=== PATIENT | female | born 1955 | race African-American/Black ===

== ENCOUNTER 2016-05-27 13:40 | Inpatient (IN) | payer SELFPAY ==
[~2016-05-27] VITALS: Ht 162.6 cm; Wt 85.2 kg
[~2016-05-27 13:40] MED LIST: BUMEX2 MG PO; FERROUS SULFAT325 MG PO; GLIMEPIRIDE4 MG PO; MULTIPLE VITAMI1 TA1 PO; NORVASC10 MG PO; NOVOLIN 70/30 110 ML SC; PROBIOTIC1 EAC1 PO; ROCALTROL0.25 MCG PO; SUPER B COMPLE150 MG PO; TOPROL XL100 MG PO; ZINC50 MG PO
[2016-05-27 14:10] LABS: BASOPHILS 0.2 % (0.0-2.0); EOSINOPHILS 2.3 % (0-7); HEMOGLOBIN 8.3 g/dL (12-16); IMMATURE GRANULOCYTES 0.2 % (0-5); LYMPHOCYTES 16.8 % (15-50); MCH 27.9 pg (26.0-34.0); MCHC 31.9 g/dL (31.0-37.0); MCV 87.5 fL (80.0-100.0); MEAN PLATELET VOLUME 10.6 fL (7.4-10.4); MONOCYTES 8.5 % (2-11); PLATELET COUNT 219 10x3/uL (130-400); RBC 2.97 10x6/uL (4.00-5.40); RDW 13.1 % (11.5-14.5); WBC 8.1 10x3/uL (4.8-10.8)
[2016-05-27 14:26] LABS: CALCIUM 8.9 mg/dL (8.5-10.1); CREATININE - SERUM 7.5 mg/dL (0.6-1.3)
--- NOTE | 2016-05-27 14:30 | NUR ---
RECEIVED PT VIA WHEELCHAIR ACCOMPANIED BY FAMILY MEMBERS. ON ROOM AIR. NO IV ACCESS. WILL ADMIT PT AND CONTINUE TO MONITOR.
[2016-05-27] MEDS ORDERED: GLIMEPIRIDE4 MG PO (14:36)
[2016-05-27] MEDS ORDERED: SODIUM BICARBO325 MG PO (14:39)
[2016-05-27] MEDS ORDERED: DIOVAN80 MG PO (14:40)
[2016-05-27] MEDS ORDERED: GABAPENTIN100 MG PO (14:42)
[2016-05-27 14:59] VITALS: BP 160/61; BMI 30.9
--- NOTE | 2016-05-27 15:33 | NUR ---
STACY REIS SITED PT WITH 22G IV CATHETER TO RIGHT AC. TOLERATED WELL. WILL CONTINUE TO MONITOR.
[2016-05-27 16:00] VITALS: BP 160/61
--- NOTE | 2016-05-27 16:30 | NUR ---
1535- QUICKSTART WITH MEDICATIONS DONE, ADMISSION ASSESSMENT DONE, AND ADMISSION HISTORY DONE. WILL AWAIT NEW ORDERS AND CONTINUE TO MONITOR.
--- NOTE | 2016-05-27 16:39 | NUR ---
PAGED JILLIAN PAIZ TO INFORM HER OF PT AND PTS FAMILY REQUESTING FOR PT TO HAVE SOMETHING FOR SHOULDER PAIN. AWAITING CALLBACK.
--- NOTE | 2016-05-27 17:27 | NUR ---
DR. SPEARS ON UNIT. INFORMED HIM OF PTS REQUEST FOR SOMETHING FOR SHOULDER PAIN. ALSO INFORMED DR. SPEARS ABOUT PTS POTASSIUM LEVEL (6.0). NEW ORDERS RECEIVED. WILL CONTINUE TO MONITOR.
--- NOTE | 2016-05-27 17:28 | NUR ---
PT SITTING UP IN BED WITH EYES OPEN EATING DINNER. FAMILY MEMBERS AT BEDSIDE. LEFT ARM ELEVATED ON PILLOW DUE TO SWELLING (PT STATES IT IS FROM A PINCHED NERVE). NO NEED AT CURRENT TIME. WILL CONTINUE TO MONITOR AND CONTINUE WITH PLAN OF CARE.
--- NOTE | 2016-05-27 18:35 | NUR ---
SCDS PLACED ON PT ORDERED.
[2016-05-27 20:00] VITALS: BP 162/64
[2016-05-28] VITALS (18 sets, daily range): BP systolic 102–184; BP diastolic 41–97; Ht 162.6 cm; Wt 85.2 kg
--- NOTE | 2016-05-28 06:30 | NUR ---
DR VIZCARRA CALLS, NEW ORDERS RECEIVED TO MAINTAIN PT'S NPO STATUS, PLACE ORDER TO OBTAIN CONSENT FOR AV FISTULA/GRAFT AND HEMOSPLIT PLACEMENT TO START DIALYSIS. INFORMED DR VIZCARRA THAT PT'S TEMP THIS AM IS 102.6. STATES HE MAY HOLD OFF ON PLACEMENT OF AVF PENDING PT'S WBC COUNT. CALL PLACED TO RENAL FRONT END MANAGER AT THIS TIME TO NOTIFY OF ELEVATED TEMP.
--- NOTE | 2016-05-28 06:40 | NUR ---
SPOKE WITH JILLIAN PAIZ APN SOFTBALL CORE MOLDER. NOTIFIED OF PT'S ELEVATED TEMP. ORDER RECEIVED FOR BLOOD AND URINE CULTURES AND FOR TYLENOL Q6H PRN TEMP. PT'S DAUGHTER AND PT UPDATED ON POC AND VERBALIZED UNDERSTANDING.
[2016-05-28 06:45] LABS: BASOPHILS 0.3 % (0.0-2.0); EOSINOPHILS 0.8 % (0-7); HEMATOCRIT 22.9 % (36.0-48.0); IMMATURE GRANULOCYTES 0.2 % (0-5); LYMPHOCYTES 15.8 % (15-50); MCH 27.7 pg (26.0-34.0); MCHC 31.4 g/dL (31.0-37.0); MCV 88.1 fL (80.0-100.0); MONOCYTES 4.4 % (2-11); NEUTROPHILS 78.5 % (40-80); RDW 13.3 % (11.5-14.5); WBC 6.2 10x3/uL (4.8-10.8)
[2016-05-28 07:07] LABS: ANION GAP 19.5 mmol/L (8-16); CALCIUM 8.2 mg/dL (8.5-10.1); CARBON DIOXIDE 21.4 mmol/L (21.0-32.0); INR 1.31 (0.85-1.17); POTASSIUM - SERUM 5.9 mmol/L (3.5-5.1); PROTIME 16.1 SECONDS (11.6-15.0)
[2016-05-28 07:49] LABS: PLATELET COUNT 166 10x3/uL (130-400)
[2016-05-28 07:50] LABS: HEMOGLOBIN 7.2 g/dL (12-16)
--- NOTE | 2016-05-28 08:13 | NUR ---
SPOKE WITH DR. MONROY ON UNIT. INFORMED HIM OF PTS TEMP AND CRITICAL LAB (HEMOGLOBIN). DR. MONROY STATED TO CALL DR. GORDON AND LET HIM NO THAT WE ARE NOT DOING THE PROCEDURE TODAY. DR. MONROY STATED PT WILL NEED TRIALYSIS CATHETER. WILL TRY AND GET AHOLD OF DR. GORDON. 0800- PAGED DR. SPEARS TO LET HIM KNOW OF PTS TEMP AND HEMOGLOBIN LEVELS. AWAITING CALLBACK.
--- NOTE | 2016-05-28 08:26 | NUR ---
DR. MONROY STATES TO SEND PT TO UNIT. PATIENT OFFICE REP CALLED TO SEE ABOUT A BED. WILL CONTINUE TO MONITOR.
--- NOTE | 2016-05-28 08:27 | NUR ---
SPOKE WITH DOUGLAS/RN IN SURGERY TO NOTIFY TO CANCEL SURGERY - PT TO ICU
--- NOTE | 2016-05-28 08:29 | NUR ---
PAGED DR. VIZCARRA TO ADVISE PT TO ICU AND SURGERY CANCELLED. AWAITING CALL BACK
--- NOTE | 2016-05-28 08:55 | NUR ---
CALLED REPORT TO ICU NURSE, SPOKE WITH JOO. WILL TRANSFER PT ORDERED.
--- NOTE | 2016-05-28 09:08 | NUR ---
TRANSFERED PT TO ICU VIA BED.
--- NOTE | 2016-05-28 10:22 | NUR ---
0700- AM ROUNDING: PT LAYING IN BED ON BACK WITH EYES CLOSED RESTING. DAUGHTER IS AT BEDSIDE. NPO CURRENTLY FOR PROCEDURE. FSBS ACHS, 236 THIS AM THAT WAS NOT COVERED BY SENIOR BRAND MANAGER NURSE BECAUSE PT IS NPO AND WILL NOT BE EATING BREAKFAST. NO MONITOR. ROOM AIR. IV SEEN TO RIGHT AC THAT IS CURRENTLY SALINE LOCKED. SCDS ON. PER REPORT PT STILL NEEDS CONSENTS FOR PROCEDURE AND EKG DONE. WILL DO ORDERED AND CONTINUE TO MONITOR.
--- NOTE | 2016-05-28 10:25 | NUR ---
6861- RJ GIBBS CAME TO INFORM ME THAT PTS O2 SAT IS 71%. WENT TO PTS ROOM AND PUT CHECK PTS O2 SAT WHICH IS 71%. PUT PT ON O2 AT 2L VIA NC AND CALLED RESP IN ROOM. RESP TURNED O2 UP TO 4L VIA NC. PTS O2 SAT IS NOW 91%. WILL CONTINUE TO MONITOR.
--- NOTE | 2016-05-28 10:44 | NUR ---
SPOKE WITH JOO RN IN ICU. JOO STATED SHE WOULD BE DOING HER DAILY ICU SHIFT ASSESSMENT.
--- NOTE | 2016-05-28 10:47 | NUR ---
UNABLE TO SHIFT COMPLETE SHIFT ASSESSMENT DUE TO PT BEING TRANSFERED TO ICU QUICKLY. PTS BREATH SOUNDS ARE CLEAR, BILATERAL. BOWELS ARE ACTIVE. +3 PITTING EDEMA SEEN BILATERALLY. BILATERAL LEGS ARE DRY, SCALY. PTS LEFT ARM IS SWOLLEN AND WARM TO TOUCH, PTS DAUGHTER STATES ITS FROM WHERE PT HAS HAD A PINCHED NERVE.
--- NOTE | 2016-05-28 11:31 | NUR ---
0915-RECIEVED PER FLOW SHEET-TRANSFERED TO ICU BED-NOTED SR MONITOR-DAUGHTER AT BEDSIDE-DIRECTED TO SECURE BELONGINGS AT HOME OR TRUNK OF CAR-NOTED ORDERED FLU SWAB-AND INFECTION CONTROL NOTIFIED PER POLICY-DIRECTED FOR ISOLATION-DAUGHTER AND PT DIRECTED OF SAME-PT COMPLAINING OF PAIN AND HIP -R -R FOREARM 20 G PLACED FOLLOWING ONE ATTEMPT-DR VIZCARRA MADE AWARE FOR TRIALYSIS CATHETER AND PLANNED DIALYSIS-PT AND DAUGHTER MADE AWARE OF SAME SEE EMAR FOR PAIN FLOW RECORD AND ADMINISTRATION 1015-PT ASLEEP -AWAKENS EASILY STATED FEELS BETTER
--- NOTE | 2016-05-28 13:44 | NUR ---
Is the patient Alert and Oriented? No 0 * How many steps to enter\exit or inside your home? 0-2 0 * PCP HAND ENDBAND CUTTER: ASTRID HEARD AT [facility] IN [place] 0 * Pharmacy [facility] IN [place] 0 * Preadmission Environment Home with Family 0 * ADLs Independent 0 * Equipment Cane Walker 0 * List name and contact numbers for known caregivers / representatives who currently or will assist patient after discharge: SPOUSE: MACIE QUINTERO [phone] 0 * Community resources currently utilized None 0 * Additional services required to return to the preadmission environment? Yes 0 * Can the patient safely return to the preadmission environment? No 0 * Has this patient been hospitalized within the prior 30 days at any hospital? No 0 PATIENT LIVES IN [facility]. SHE RETIRED LAST JANUARY AND LOST HER INSURANCE. HER DAUGHTER, JJ, IS PROVIDING INFORMATION. SHE STATES HER MOTHER LIVES AT HOME WITH HER , MACIE. SHE WILL SOMETIMES STAY WITH HER DAUGHTER IF SHE IS NOT DOING WELL. JJ STATES HER MOTHER HAS NOT BEEN ON DIALYSIS BEFORE. SHE SEES A HAND ENDBAND CUTTER-ASTRID HEARD AT THE [facility] IN [place]. SHE GETS HER MEDS FROM [facility] IN [place]. SHE HAS A WALKER AND CANE. SHE HAD O2 PRESCRIBED FOR HER BUT SHE SAID IT MADE HER FEEL BAD AND REFUSED IT AGAINST MEDICAL ADVISE. PATIENT HAS NEVER HAD HOME HEALTH. THERE ARE 0-2 STEPS TO ENTER HER HOME. PATIENT'S DAUGHTER, JJ, STATES SHE WILL BE AVAILABLE TO DRIVE PATIENT HOME AT DISCHARGE. I HAVE SUGGESTED TO JJ THAT WHEN PATIENT IS FEELING BETTER TO HAVE HER CALL THE MEDICAID APARTMENT HOUSE MANAGER HERE AT [facility] TO SEE IF SHE WOULD QUALIFY FOR ANY ASSISTANCE. ACCORDING TO HER DAUTHER, PATIENT'S CHANGED JOBS AND SHE WILL NOT BE COVERED BY HIS INSURANCE UNTIL JUNE. DISCHARGE NEEDS ARE UNDETERMINED AT THIS TIME. CM TO FOLLOW.
--- NOTE | 2016-05-28 18:42 | NUR ---
1340-DR VIZCARRA AT [facility]- INFORMED OF STATUS-PT LETHARGIC -ABLE TO ANSWER VERY FEW QUESTIONS-DAUGHTER AT [facility]-INFORMED OF PLAN FOR TRIALYSIS CATH IN OR-CONSENTS SIGNED BY DAUGHTER-FOR OR-AWARE TO RECIEVE 2 UNITS PRBC ON PLANNED POST OP DIALYSIS-CONSENT OBTAINED-[facility] 1415-RETURNED TO ICU-STAT PORT CXR OBTAINED FOR R JUGULAR TRIALYSIS ACCESS-DIALYSIS AT BEDSIDE SET UP 1500-DIALYSIS NURSE PENDING LINE PLACEMENT RESULTS-FAMILY AT BEDSIDE AND QUESTIONS ANSWERED-INFORMED HOLDING BP PO MED AND REASSESS AFTER DIALYSIS COMPLETED-PT APPEARS MORE AWAKE AND ABLE TO ANSWER INCREASED QUESTION 1600-DIALYSIS IN PROGRESS-PRBC PER DIALYSIS RECORD 181-DIALYSIS COMPLETED -PT AWAKE AND ALERT-HAS NO RECALL OF DAYS EVENTS-QUESTIONS ANSWERED
--- NOTE | 2016-05-28 19:00 | NUR ---
REPORT RECIEVED, INITIAL ASSESSMENT COMPLETE, PLEASE SEE FLOW SHEETS FOR DETAILS. BED LOW AND LOCKED, CALL LIGHT IN REACH. COMPLAINTED OF SLIGHT PAIN IN LEFT SHOULDER, AND WANTED TO KNOW IF SHE COULD HAVE FOOD, WILL CHECK NOTES AND EMAR FOR PAIN MEDS AND FOR NEW ORDERES ON DIET. VSS, WILL CONTINUE TO MONITOR.
--- NOTE | 2016-05-28 19:02 | NUR ---
Mrs. Crook had bedside hemodialysis today via her right IJ Trialysis from 1600 untill 1830. Average blood flow was only 250 mls/minute today due to elevated bun>100 and first treatment.Transfused two units of prbc's and removed the volume from both units of prbc's as well as a net of 1000 mls.Post vital signs were: B/P:187/83, HR:98,Temp:98.3, Resps:16.
--- NOTE | 2016-05-28 21:00 | NUR ---
MOVED PT UP IN BED AND TURNED TO RIGHT SIDE. PT ATE TWO SUGAR FREE JELLO CUPS AND [id number] SANDWICH SAYING IT WAS "TOO SALTY". DENIES ANY OTHER NEEDS ATT, FAMILY AT BEDSIDE. VSS, BED LOW AND LOCKED, CALL LIGHT IN REACH. WILL CONTINUE TO MONITOR.
--- NOTE | 2016-05-28 23:19 | NUR ---
REASSESSMENT COMPLETE, PLEASE SEE FLOW SHEETS FOR DETAILS. REPOSITIONING PROVIDED TO LEFT SIDE. PT DENIES PAIN/NEEDS ATT, VSS, BED LOW AND LOCKED, CALL LIGHT IN REACH, WILL CONTINUE TO MONITOR.
[2016-05-29] VITALS (14 sets, daily range): BP systolic 146–188; BP diastolic 64–99
--- NOTE | 2016-05-29 00:44 | NUR ---
PT SAID SHE NEEDED TO URINATE BUT FELT SHE COULDNT, PLACED KRAMER AND COLLECTED SPECIMENS WHICH WERE SENT TO LAB. PROVIDED FULL BATH AND LINEN CHANGE ATT. VSS, BED LOW AND LOCKED, CALL LIGHT IN REACH. WILL CONTINUE TO MONITOR.
--- NOTE | 2016-05-29 01:01 | NUR ---
PT RESTING NOW, NO S&S OF ACUTE DISTRESS NOTED. RR EVEN AND UNLABORED. VSS, BED LOW AND LOCKED WITH CALL LIGHT IN REACH. WILL CONTINUE TO MONITOR.
--- NOTE | 2016-05-29 03:00 | NUR ---
REASSESSMENT COMPLETE, PLEASE SEE FLOW SHEETS FOR DETAILS. DENIES PAIN/NEEDS ATT. VSS, BED LOW AND LOCKED, CALL LIGHT IN REACH. WILL CONTINUE TO MONITOR.
--- NOTE | 2016-05-29 05:00 | NUR ---
PT RESTING, BED LOW AND LOCKED, CALL LIGHT IN REACH. VSS, WILL CONTINUE TO MONITOR.
[2016-05-29 06:09] LABS: BASOPHILS 0.4 % (0.0-2.0); EOSINOPHILS 4.7 % (0-7); IMMATURE GRANULOCYTES 0.1 % (0-5); LYMPHOCYTES 14.2 % (15-50); MCHC 32.6 g/dL (31.0-37.0); MEAN PLATELET VOLUME 11.3 fL (7.4-10.4); MONOCYTES 9.6 % (2-11); RDW 13.6 % (11.5-14.5)
[2016-05-29 06:12] LABS: CALCIUM 8.1 mg/dL (8.5-10.1)
[2016-05-29 06:15] LABS: HEMATOCRIT 28.2 % (36.0-48.0); HEMOGLOBIN 9.2 g/dL (12-16); MCV 85.7 fL (80.0-100.0); PLATELET COUNT 213 10x3/uL (130-400); RBC 3.29 10x6/uL (4.00-5.40); WBC 8.5 10x3/uL (4.8-10.8)
[2016-05-29 06:17] LABS: CREATININE - SERUM 5.6 mg/dL (0.6-1.3)
--- NOTE | 2016-05-29 07:00 | NUR ---
REC'D REPORT FROM OUTGOING RN. PT RESTING SUPINE IN BED AA&O X 4 - DENIES PAIN. ASSESSMENT COMPLETE - CPOC
--- NOTE | 2016-05-29 08:00 | NUR ---
BREAKFAST TRAY GIVEN TO PT PT C/O FELLING STIFF WITH ROM - PT DENIES ACUTE PAIN - WILL INFORM MD. SMALLSOC
--- NOTE | 2016-05-29 09:00 | NUR ---
DAUGHTER AT BEDSIDE - PASSWORD ESTABLISHED "NET" - MEDICATIONS GIVEN (SEE MAR) PT RESTING SUPINE IN BED - PLACED PILLOW UNDER RIGHT HIP FOR COMFORT. PT RESTING SUPINE IN BED -
--- NOTE | 2016-05-29 10:00 | NUR ---
Ms Chambers ON UNIT FOR ASSESSMENT - TRANSFER ORDER REC'D - NOTIFIED LOGISTICS INTERN - PT RESTING SUPINE IN BED WITH EYES CLOSED, RESPIRATIONS, REGULAR, RATE, AND RHYTHM. CPOC
[2016-05-29 10:26] LABS: APPEARANCE CLOUDY (CLEAR); COLOR YELLOW (YELLOW); SPECIFIC GRAVITY 1.015 (1.005-1.020)
[2016-05-29 10:27] LABS: BILIRUBIN NEGATIVE (NEGATIVE); GLUCOSE 100 mg/dL (NEGATIVE); KETONE NEGATIVE (NEGATIVE); LEUKOCYTE ESTERASE 2+ (NEGATIVE); NITRITE NEGATIVE (NEGATIVE); PROTEIN 3+ mg/dL (NEGATIVE); UROBILINOGEN NORMAL (NORMAL); WHITE CELLS - URINE >50 /hpf (0-5)
[2016-05-29 10:28] LABS: BACTERIA MANY /hpf (NONE SEEN); EPITHELIAL CELLS 0-5 /hpf (0-5); GRANULAR CAST OCC /lpf (NONE SEEN)
--- NOTE | 2016-05-29 10:30 | NUR ---
PHYS THERAPIST AT BED SIDE TO TRANSFER PT TO CHAIR (SEE PT FLOW SHEET) PT REPORT SHE USES A WALKER AND W/C AT HOME (NOTICED THAT PT TENDS TO LEAN AWAY FROM [employer]t THEARPIST) CPOC
--- NOTE | 2016-05-29 11:00 | NUR ---
ASSESSMENT COMPLETE - NO ACUTE CHANGE - VVS EXCEPT CONTINUES ELEVATED B/P - MD AWARE - CPOC
--- NOTE | 2016-05-29 12:00 | NUR ---
LUNCH TRAY SERVED TO PT - PT SITTING UP IN CHAIR RESTING - DENIES ANY ACUTE DISTRESS - FAMILY VISITING.
--- NOTE | 2016-05-29 12:45 | NUR ---
PHYS THERAPY AT BEDSIDE TO TRANSFER PT TO BED. (SEE P.T. FLOW SHEET) PT RESTING SUPINE IN BED. RESP REG RATE RHTYHM.
--- NOTE | 2016-05-29 13:49 | NUR ---
PT RESTING SUPINE IN BED, EYES CLOSED, EASILY AWKENED BY VERBAL STIMULI. RESP REG/RATE/RHYTHM. CPOC
--- NOTE | 2016-05-29 16:40 | NUR ---
US TECH AT BEDSIDE FOR RENAL US -
--- NOTE | 2016-05-29 19:00 | NUR ---
REPORT RECIEVED, INITIAL ASSESSMENT COMPLETE, PLEASE SEE FLOW SHEETS FOR DETAILS. DENIES PAIN/NEEDS ATT. BED LOW AND LOCKED, CALL LIGHT IN REACH. VSS, SCD'S ON AND RUNNING. WILL CONTINUE TO MONITOR.
--- NOTE | 2016-05-29 20:15 | NUR ---
PT READY TO TRANSFER, CALLED TO GIVE REPORT, NURSE SAID SHE WOULD CALL BACK - PONCHO ON MED 2. PT HAS NO NEEDS ATT. WILL CONTINUE TO MONITOR.
--- NOTE | 2016-05-29 20:39 | NUR ---
GAVE REPORT TO PEACHLAND ON MED 2, WILL TRANSFER PATIENT.
--- NOTE | 2016-05-29 21:03 | NUR ---
PT SAFELY TRANSFERED VIA BED TO ROOM 2125. SAFELY MOVED FROM ICU BED TO FLOOR BED. PONCHO RN NOTIFIED OF PT IN ROOM. CHART AND MEDS BROUGHT TO UNIT. LEFT PT IN CARE OF PONCHO KUMAR.
[2016-05-30 00:30] VITALS: BP 179/78
[2016-05-30 04:30] VITALS: BP 203/85
[2016-05-30 06:04] LABS: BASOPHILS 0.3 % (0.0-2.0); EOSINOPHILS 5.4 % (0-7); HEMATOCRIT 28.7 % (36.0-48.0); HEMOGLOBIN 9.4 g/dL (12-16); IMMATURE GRANULOCYTES 0.2 % (0-5); LYMPHOCYTES 14.8 % (15-50); MCH 28.3 pg (26.0-34.0); MCHC 32.8 g/dL (31.0-37.0); MCV 86.4 fL (80.0-100.0); MEAN PLATELET VOLUME 11.4 fL (7.4-10.4); MONOCYTES 11.6 % (2-11); NEUTROPHILS 67.7 % (40-80); PLATELET COUNT 202 10x3/uL (130-400); RBC 3.32 10x6/uL (4.00-5.40); RDW 13.4 % (11.5-14.5); WBC 8.8 10x3/uL (4.8-10.8)
[2016-05-30 06:43] LABS: ANION GAP 10.7 mmol/L (8-16); CARBON DIOXIDE 29.6 mmol/L (21.0-32.0); CREATININE - SERUM 5.9 mg/dL (0.6-1.3); MAGNESIUM - SERUM 1.8 mg/dL (1.8-2.4); PHOSPHOROUS 6.6 mg/dL (2.5-4.9); POTASSIUM - SERUM 4.3 mmol/L (3.5-5.1)
[2016-05-30 08:59] VITALS: BP 180/68
[2016-05-30 12:14] VITALS: BP 184/69
[2016-05-30 16:13] VITALS: BP 186/78
--- NOTE | 2016-05-30 20:21 | NUR ---
INITIAL ROUNDS COMPLETED AT 1915 HRS. PT DENIED ANY DISCOMFORT. ASSESSMENT COMPLETED AT 2010 HRS. SR PER CM HR 79. R IJ TRIALYSIS CLEAN, DRY AND INTACT. L ARM WEAKNESS NOTED. BILAT LEGS WEAK. BLISTER NOTED TO 4TH TOE OF L FOOT. IV TO RAC AND R CLAUS KRAMER DRAINING YELLOW URINE. DAUGHTER AT BEDSIDE. O2 4LNC. WILL CONTINUE TO MONITOR. SR UP X2, CALL LIGHT WITHIN REACH.
[2016-05-30 21:37] VITALS: BP 140/73
--- NOTE | 2016-05-30 23:05 | NUR ---
IV TO RAC AND RFA OCCLUDED. BOTH DC'D WITH CATHETER INTACT.
--- NOTE | 2016-05-31 00:29 | NUR ---
PT RESTING WITH EYES CLOSED. RESP EVEN AND REGULAR. SR UP X2, CALL LIGHT WITHIN REACH.
[2016-05-31 00:30] VITALS: BP 182/71
--- NOTE | 2016-05-31 04:24 | NUR ---
PT RESTING WITH EYES CLOSED. RESP EVEN AND REGULAR. SR UP X2, CALL LIGHT WITHIN REACH.
[2016-05-31 04:45] VITALS: BP 191/75
[2016-05-31 06:21] LABS: BASOPHILS 0.2 % (0.0-2.0); EOSINOPHILS 4.3 % (0-7); HEMATOCRIT 29.2 % (36.0-48.0); HEMOGLOBIN 9.2 g/dL (12-16); IMMATURE GRANULOCYTES 0.2 % (0-5); LYMPHOCYTES 15.7 % (15-50); MCH 27.5 pg (26.0-34.0); MCHC 31.5 g/dL (31.0-37.0); MCV 87.2 fL (80.0-100.0); MONOCYTES 11.4 % (2-11); NEUTROPHILS 68.2 % (40-80); PLATELET COUNT 201 10x3/uL (130-400); RBC 3.35 10x6/uL (4.00-5.40); RDW 13.2 % (11.5-14.5); WBC 8.9 10x3/uL (4.8-10.8)
[2016-05-31 06:22] VITALS: BP 168/88
[2016-05-31 06:39] LABS: ANION GAP 10.4 mmol/L (8-16); CALCIUM 8.5 mg/dL (8.5-10.1); CARBON DIOXIDE 30.1 mmol/L (21.0-32.0); POTASSIUM - SERUM 4.5 mmol/L (3.5-5.1)
--- NOTE | 2016-05-31 06:43 | NUR ---
VSS THROUGHOUT NIGHT. PT DENIED ANY DISCOMFORT. NEEDS MET; WILL CONTINUE TO MONITOR.
--- NOTE | 2016-05-31 07:53 | NUR ---
RESTSWAPNIL G QUIETLY NAD NOTED
--- NOTE | 2016-05-31 07:54 | NUR ---
RESTING QUIETLY NAD NOTED
[2016-05-31 07:59] VITALS: BP 181/66
--- NOTE | 2016-05-31 11:15 | NUR ---
ASSESSMENT COMPLETED. TELEMERTY SHOWS SR. RIGHT IJ HEMOSPLIT. O2 AT 4 L/M RIGHT ARM RESERVED. KRAMER CATH PATENT TO GRAVITY BAG. BLISTER TO 4TH TOE LEFT FOOT. UP TO BS COMMODE WITH HELP. WILL MONITOR
[2016-05-31 11:56] VITALS: BP 191/65
--- NOTE | 2016-05-31 15:00 | NUR ---
TO YANIRA GOLDBERG CHAIR
--- NOTE | 2016-05-31 18:43 | NUR ---
PT BACK FROM DIAYLSIS.DENIES ANY NEEDS. CALL IGHT IN REACH WITH SR UP
[2016-05-31 21:40] VITALS: BP 194/81
--- NOTE | 2016-06-01 | NUR ---
NPO PER ORDERS FOR AM PROCEDURE. VOICES NO C/O PAIN OR DISCOMFORT AT THIS TIME. HOB UP SR UP X2, C/L IN REACH. FAMILY MEMBER AT BEDSIDE FOR NIGHT. CONTINUE TO MONITOR.
[2016-06-01 02:00] VITALS: BP 182/69
[2016-06-01 08:07] VITALS: BP 121/57
--- NOTE | 2016-06-01 08:14 | NUR ---
ASSESSMENT COMPLETED. TELEMERTY SHOWS SR. 02 AT 4 L/M PER NC. RIGHT IJ TRIALYSIS. RIGHT AC SL. KRAMER CATH TO GRAVITY BAG. DENIES ANY NEEDS CALL LIGHT IN REACH
--- NOTE | 2016-06-01 10:29 | NUR ---
RESTING QUIETLY DENIES ANY NEEDS AT THIS TIME
--- NOTE | 2016-06-01 10:45 | NUR ---
pre oped for surgery.
[2016-06-01 13:14] LABS: ANA REFLEX - DIRECT Negative (Negative)
--- NOTE | 2016-06-01 14:04 | OP ---
PATIENT NAME: MARY QUINTERO MEDICAL RECORD: [id number] :53 LOCATION:D. D.[id number] ADMISSION DATE:05/27/16 SURGEON: IAM VIZCARRA MD DATE OF OPERATION: 05/28/2016 PREOPERATIVE DIAGNOSES: End-stage renal disease with pulmonary edema and anasarca, hypertension, diabetes, insulin-dependent, and uremia. POSTOPERATIVE DIAGNOSES: End-stage renal disease with pulmonary edema and anasarca, hypertension, diabetes, insulin-dependent, and uremia. SURGEON: Iam Vizcarra M.D. OPERATION PERFORMED: Insertion of a right internal jugular Trialysis non-tunneled central venous hemodialysis catheter under local anesthesia with ultrasound and fluoroscopic guidance. ANESTHESIA: Local with monitoring only performed by FARM MACHINERY ERECTOR. PREOPERATIVE NOTE: Ms. Quintero is a 60-year-old -Al[place]ian female with diabetes and hypertension who has a longstanding chronic kidney disease and has gone on now to develop uremia and hyperkalemia. She has some pulmonary edema, anasarca, symptomatic with dyspnea and shortness of breath on exertion and is in need of starting dialysis today. She is to be brought to the operating room now for an insertion of acute dialysis catheter. This will be done under local anesthesia with full barrier precautions best in the operating room where not only ultrasound guidance, but also fluoroscopic guidance is available. DESCRIPTION OF PROCEDURE: Under local anesthesia, 1% lidocaine without epinephrine and with the patient in supine position, prepped and draped in a sterile manner, I located the internal jugular vein with the ultrasound unit and infiltrated the local anesthetic into the skin overlying the jugular vein at the base of the neck on the right, a small stab incision was made and then through that incision, a needle and guidewire were inserted into the internal jugular vein under continuous ultrasonic guidance. Under fluoroscopy, the guidewire was advanced into the right atrium and serial dilators were passed and lastly, a 15 cm long Bard Trialysis catheter was inserted. All 3 lumens were aspirated, free return of blood confirmed. They were all then flushed with heparin lock solution, clamped and capped. The catheter was sutured in place with 2-0 silk and a sterile dressing applied and the patient then returned to her bed in the intensive care in a serious, but stable condition. There was no blood loss and sponges, instruments, etc. were accounted for. No surgical specimen was submitted. A chest x-ray was requested postop in ICU. Assuming the patient responds to acute dialysis, I plan to take her back to the operating room on Tuesday of next week for insertion of a HemoSplit tunneled dialysis catheter and possibly also creation of an AV fistula versus implantation of an AV graft. TRANSINT:[id number] Voice Confirmation ID: [id number] DOCUMENT ID: [id number] OPERATIVE REPORT [id number] MARY QUINTERO JAMES MD at 1404 CC: LILIAM SPEARS MD [id number] DICTATION DATE: 05/28/16 1611 SENIOR TRAINER: 05/28/16 2353 ADM IN [facility] [address] [id number]
[2016-06-01 14:59] VITALS: BP 174/62
--- NOTE | 2016-06-01 15:12 | NUR ---
BACK FROM SURGERY, V/S STABLE, RIGHT CHEST HEMASPLIT AND RIGHT LOWER ARM AVF. NO BLEEDING
--- NOTE | 2016-06-01 15:21 | NUR ---
Nutrition follow-up: Pt has been NPO for hemosplit placement today PO intake of renal consistent CHO diet before surgery was 75-100% of meals Labs: FSBS > 200 mg/dl Wt: 203# PO intake good at this time. RDN following.
[2016-06-01 16:10] VITALS: BP 138/55
--- NOTE | 2016-06-01 16:27 | NUR ---
RECEIVED ORDER FOR NEW OPHD PLACEMENT. CM PLACED CALL TO XIOMARA POWELL WITH [facility] TO INFORM OF NEW OPHD PLACEMENT ORDER. XIOMARA WILL ARRANGE HD CLINIC AND NOTIFY CM WHEN FINAL HD ARRANGEMENTS ARE MADE.
--- NOTE | 2016-06-01 18:42 | NUR ---
LYING QUIETLY. NO NEEDS VOICED. RIGHT HEMOSPLIT WITH NO BLEEDING. RIGHT LOWER AR AVF WITH GOOD THRILL AND BRUITT. FAMILY AT BEDSIDE N
--- NOTE | 2016-06-01 19:30 | NUR ---
ASSESSMENT DONE. PT SLEEPING, AWAKEN BY VOICE STIMULI. HEMESPLIT TO RIGHT CHEST WITH DRESSING INTACT. NS AT KVO INFUSING THROUGH HEMESPLIT. KRAMER PATENT TO BSD. DRESSING TO AVF LOCATED ON RIGHT LOWER ARM. PT DENIES PAIN OR NEEDS AT THIS TIMES. DAUGHTER AT BEDSIDE. CALL LIGHT WITH IN REACH. WILL CONT. TO MONITOR.
[2016-06-01 20:00] VITALS: BP 135/31
[2016-06-01 22:07] LABS: MYCOPLASMA PNEUMO IGG <100 U/mL (0-99)
--- NOTE | 2016-06-02 03:42 | NUR ---
PT SLEEPING. HOB ELEVATED. NO DISTRESS NOTED. RESP EVEN AND UNLABORED. APPEARS COMFORTABLE. CALL LIGHT WITH IN REACH. WILL CONT. TO MONITOR.
[2016-06-02 04:00] VITALS: BP 146/35
--- NOTE | 2016-06-02 06:03 | NUR ---
PT'S TEMP 100.3. TYLENOL 650MG GIVEN PO. PT'S ROOM IS VERY WARM. PT DENIES PAIN OR DISCOMFORT. FSBS 98. PT HAS SNACK IN HER ROOM IF NEEDED. CALL LIGHT WITH IN REACH. WILL CONT. TO MONITOR.
[2016-06-02 07:48] VITALS: BP 152/53
--- NOTE | 2016-06-02 08:00 | NUR ---
INTRODUCED MYSELF TO PT PRIMARY RN FOR TODAYS SHIFT. PT IS ALERT AND ORIENTED RESTING QUIETLY IN BED. SHIFT ASSESSMENT COMPLETED. PT HAS DAUGHTER AT BEDSIDE. KRAMER DRAINING TO GRAVITY OFF L.SIDE OF BED. CLEAR YELLOW URINE. L.ARM IS SWOLLEN AND HAS BEEN PT STATES AND SHE IS SEEING A JUAN SPECIALIST IN [place] FOR A PINCHED NERVE. PT DENIES ANY CURRENT NEEDS AT THIS TIME. CL IN REACH, BED IN LOWEST, SIDE RAILS X2. WILL CPOC.
--- NOTE | 2016-06-02 11:13 | NUR ---
FSBS 203 PT SITTING UP IN BEDSIDE CHAIR WITH DAUGHTER AT BEDSIDE GIVING HER A BATH. PT REC'D 8 UNITS PER SS INSULIN. PT RESTING AND VOICED THANKS FOR HER NORCO AND STATED RELIEF FROM IT. CL IN REACH, NO FURTHER NEEDS AT THIS TIME. WILL CPOC.
[2016-06-02 11:19] LABS: ANGIOTENSIN CONVERTING ENZYME 64 U/L (14-82)
[2016-06-02 11:46] VITALS: BP 182/58
--- NOTE | 2016-06-02 13:13 | NUR ---
Nutrition education for ESRD diet: Provided pt with printed Renal diet information. Questions answered. RDN will be available if needed.
--- NOTE | 2016-06-02 14:09 | NUR ---
CHRISTIANA RECEIVED NOTIFICATION FROM XIOMARA POWELL WITH [facility] THAT OPHD ARRANGEMENTS HAVE BEEN FINALIZED. PATIENT WILL HAVE OPHD AT [facility] IN [place] ON T// SCHEDULE AT 12:00 PM. PT CAN START HD IN CLINIC ON Tuesday06/03/16. XIOMARA POWELL PROVIDED PATIENT WITH HD CLINIC WELCOME LETTER AND INSTRUCTIONS. CM NOTIFIED RENAL ESCROW REPRESENTATIVE THAT OPHD ARRANGEMENTS HAVE BEEN MADE.
[2016-06-02 16:01] VITALS: BP 141/57
[2016-06-02 16:34] LABS: BASOPHILS 0.2 % (0.0-2.0); EOSINOPHILS 3.4 % (0-7); HEMATOCRIT 27.8 % (36.0-48.0); HEMOGLOBIN 8.6 g/dL (12-16); IMMATURE GRANULOCYTES 0.3 % (0-5); LYMPHOCYTES 9.4 % (15-50); MCH 27.7 pg (26.0-34.0); MCHC 30.9 g/dL (31.0-37.0); MCV 89.7 fL (80.0-100.0); MONOCYTES 10.6 % (2-11); NEUTROPHILS 76.1 % (40-80); PLATELET COUNT 167 10x3/uL (130-400); RDW 13.3 % (11.5-14.5); WBC 10.1 10x3/uL (4.8-10.8)
[2016-06-02 17:00] LABS: ALBUMIN 1.9 g/dL (3.4-5.0); BILIRUBIN - TOTAL 0.33 mg/dL (0.2-1.3); CALCIUM 7.2 mg/dL (8.5-10.1); CARBON DIOXIDE 28.1 mmol/L (21.0-32.0); CREATININE - SERUM 4.9 mg/dL (0.6-1.3); POTASSIUM - SERUM 4.1 mmol/L (3.5-5.1); PROTEIN - SERUM 5.6 g/dL (6.4-8.2)
--- NOTE | 2016-06-02 17:17 | NUR ---
OPHD ARRANGEMENTS HAVE NOT BEEN FINALIZED D/T TOM/ROM APPROVAL NEEDED FOR UNINSURED PATIENT ACCEPTANCE. SCHEDULE GIVEN TO THE PATIENT IS CONSIDERED TENTATIVE UNTIL ROM/TOM APPROVAL IS OBTAINED. BMM DIALYSIS COORDINATOR
[2016-06-02 20:00] VITALS: BP 153/71
[2016-06-03] VITALS: BP 140/42
[2016-06-03 04:00] VITALS: BP 127/49
[2016-06-03 06:13] LABS: CALCIUM 8.1 mg/dL (8.5-10.1); CARBON DIOXIDE 26.5 mmol/L (21.0-32.0); CREATININE - SERUM 5.4 mg/dL (0.6-1.3); PHOSPHOROUS 6.7 mg/dL (2.5-4.9); POTASSIUM - SERUM 4.5 mmol/L (3.5-5.1)
[2016-06-03 06:27] LABS: APPEARANCE CLOUDY (CLEAR); BACTERIA MODERATE /hpf (NONE SEEN); BILIRUBIN NEGATIVE (NEGATIVE); COLOR YELLOW (YELLOW); EPITHELIAL CELLS 0-5 /hpf (0-5); GLUCOSE 50 mg/dL (NEGATIVE); KETONE NEGATIVE (NEGATIVE); LEUKOCYTE ESTERASE 2+ (NEGATIVE); NITRITE NEGATIVE (NEGATIVE); PROTEIN 3+ mg/dL (NEGATIVE); SPECIFIC GRAVITY 1.015 (1.005-1.020); UROBILINOGEN NORMAL (NORMAL); WHITE CELLS - URINE >50 /hpf (0-5); YEAST >1+ WITH HYPHAE /hpf (NONE SEEN)
[2016-06-03 06:28] LABS: GRANULAR CAST OCC /lpf (NONE SEEN)
[2016-06-03 07:41] VITALS: BP 146/42
--- NOTE | 2016-06-03 08:10 | NUR ---
INTRODUCED MYSELF TO PT PRIMARY RN FOR TODAYS SHIFT. PT IS ALERT AND ORIENTED SITTING UP IN BED WITH DAUGHTER AT BEDSIDE. SHIFT ASSESSMENT COMPLETED. PTS L.ARM STILL SWOLLEN R/T PINCHED NERVE VERY DECREASED ROM IN BILAT ARMS. R.ARM IS VERY SORE WITH 2 DRSG FROM GRAFT PLACEMENT INCISION SITES. PT HAS A R.CHEST HEMESPLIT INFUSING NS KVO FOR INTERMITT. ANBX. DRSG HAS BIOPATCH IN PLACE DRSG CDI AND SWAB CAPS IN USE. PT WEARING TELEMETRY RUNNING SR. KRAMER IN PLACE DRAINING CLOUDY URINE STAT LOCK IN PLACE TO R.INNER THIGH AND SECURE. BILAT LEGS SWOLLEN PT SHOULD HAVE DIALYSIS TODAY. DAUGHTER AT BEDSIDE TO ASSIST HER WITH BREAKFAST. MORNING MEDS GIVEN. FSBS 179 NOVOLIN 10 UNITS GIVEN PER ORDER. PT RESTING AND DENIES ANY FURTHER NEEDS. CL IN REACH, BED IN LOWEST, SIDE RAILS X2. WILL CPOC.
--- NOTE | 2016-06-03 12:38 | NUR ---
PT BACK FROM DIALYSIS SITTING UP ON EDGE OF BED EATING LUNCH TRAY. REQUESTING AND WAS PROVIDED WITH PRN PAIN PILL FOR BILAT ARM PAIN. PT DENIES ANY FURTHER NEEDS AT THIS TIME AND IS RESTING QUIETLY WITH DAUGHTER AT BEDSIDE.
[2016-06-03 20:00] VITALS: BP 175/89
[2016-06-04 04:00] VITALS: BP 164/52
[2016-06-04 05:13] LABS: ANION GAP 9.7 mmol/L (8-16); CALCIUM 8.1 mg/dL (8.5-10.1); CARBON DIOXIDE 30.1 mmol/L (21.0-32.0); CREATININE - SERUM 4.4 mg/dL (0.6-1.3); PHOSPHOROUS 5.1 mg/dL (2.5-4.9); POTASSIUM - SERUM 3.8 mmol/L (3.5-5.1)
[2016-06-04 08:04] VITALS: BP 124/39
--- NOTE | 2016-06-04 10:00 | OP ---
PATIENT NAME: MARY QUINTERO MEDICAL RECORD: [id number] :51 LOCATION:D.M2 D.2126 ADMISSION DATE:05/27/16 SURGEON: IAM VIZCARRA MD DATE OF OPERATION: 06/01/2016 PREOPERATIVE DIAGNOSIS: End-stage renal disease. POSTOPERATIVE DIAGNOSIS: End-stage renal disease. OPERATION PERFORMED: Implantation of a right forearm PTFE loop [place] Propaten graft between the brachial artery and cephalic vein. Also, insertion of a tunneled dialysis catheter, HemoSplit via the right internal jugular vein and removal of a Trialysis non-tunneled central line. SURGEON: Iam Vizcarra MD ANESTHESIA: General endotracheal per LINEN KEEPER. REFERRING PHYSICIAN: Dr. Garza. PREOPERATIVE NOTE: Ms. Quintero is a 60-year-old -[place] female with end-stage renal disease, who had to begin dialysis last week emergently when she presented with pulmonary edema and hyperkalemia. Last week, I inserted a Trialysis catheter for acute dialysis. She is now brought to the operating room with plans to insert a long-term tunneled central dialysis catheter, a HemoSplit and also to implant a PTFE graft in her arms. Her left arm is chronically swollen and painful. She says she has "pinched nerve." The right arm is less swollen, though still there is edema and she has much better range of motion and much less pain in that right arm, so I plan to implant an AV graft there. With the patient under anesthesia in supine position, she was prepped and draped in a sterile manner. The Trialysis catheter was removed over a guidewire. The incision at the insertion site was enlarged and a peel-away sheath and dilator combination was inserted under fluoroscopy over the guidewire. I chose a 19-cm HemoSplit and made a separate skin incision beneath the clavicle for the entry site. The catheter was pulled through a short subcutaneous tunnel, then inserted through the peel-away sheath as it was removed. Fluoroscopy demonstrated good positioning of the catheter and both lumens were accessed and aspirated and free return of blood confirmed. They were then flushed with saline and hep-lock solution and then clamped and capped and the catheter sutured in place with 2-0 silk and a further sterile dressing applied. Anesthesia did use initially the Trialysis and later the HemoSplit catheter for venous access during the procedure. The HemoSplit catheter was accessed via a sterile extension IV tubing, so that there was really no likelihood or possibility for contamination of the HemoSplit itself from anesthesia personnel. I then examined the right arm with ultrasound after applying topical nitroglycerin paste and using a Hominy drain as a proximal venous tourniquet. The patient was noted to have edema in the subcutaneous tissues. She had a good brachial artery at the antecubital level and had a good median cubital vein and cephalic vein just above the antecubital space. I made a transverse incision and exposed the vessels and controlled with Silastic loops. I chose the Propaten PTFE graft, standard wall thickness, 6 mm in diameter x 40 cm in length. It was beveled and anastomosed end-to-side to the vein with running 6-0 Prolene. I made a counterincision on the forearm and placed the PTFE graft in a OPERATIVE REPORT [id number] MARY QUINTERO hairpin tunnel and brought it back to the antecubital space where it was shortened and beveled and anastomosed end-to-side to the very distal brachial artery just immediately above the bifurcation. The wounds were irrigated with saline and the artery and vein both flushed with heparinized saline after the venotomy and arteriotomies were made before the anastomosis were sutured. With release of the occluding loops and clamps, excellent flow was immediately established in the new AV graft and there was preservation of good pulsatile flow signals with Doppler at the radial artery at the wrist. The wounds were infiltrated with 0.25% Marcaine without epinephrine and closed with interrupted inverted 3-0 Vicryl and running intracuticular 4-0 Monocryl and Dermabond glue. They were dressed with Maxorb Ag, Tegaderm and Cavilon skin prep. The patient was then awakened and extubated and taken to the recovery room. Blood loss during the procedure I estimated at about 25 cc, none of which was replaced of course. All sponges, instruments, and needles were accounted for. No drain was used and no surgical specimens admitted for histopathology. The patient will remain an inpatient status today and will be able to go home possibly as early as tomorrow. She is still edematous and hopefully dialysis will be able to take off more fluid over the next few days. I think that will be important to wound healing. In the meantime, she is to keep the right arm elevated. I will plan to see her back in my office in 2 weeks and so an appointment will need to be scheduled for her with my office before she is discharged from the hospital. TRANSINT:[id number] Voice Confirmation ID: [id number] DOCUMENT ID: [id number] IAM VIZCARRA MD at 1000 CC: REMBERTO MONROY MD and LILIAM GARZA MD [id number] DICTATION DATE: 06/01/16 135 REFERRAL NURSE: 06/01/16 1436 ADM IN [facility] [address] [place] [address]
--- NOTE | 2016-06-04 10:58 | NUR ---
PT JUST FINISHED BATH WITH ASSISTANCE FROM HER DAUGHTER AT BEDSIDE. INITIATED PTS IVPB UNISYN TO BE INFUSED OVER 30 MINS VIA R.CHEST HEMESPLIT ACCESS. THIS ANBX LATE R/T VANCOMYCIN WAS INFUSING FIRST AND JUST FINISHED. PT RESTING COMFORTABLY IN BEDSIDE CHAIR AND DENIES ANY FURTHER NEEDS AT THIS TIME. CL IN REACH. WILL CPOC.
[2016-06-04 13:01] VITALS: BP 141/119
--- NOTE | 2016-06-04 13:16 | NUR ---
Nutrition Follow Up: Chart reviewed. Pt is eating 86% meal avg on a renal ADA diet. Wt stable. I<O. No BM since admit. Labs noted - BUN, Cr, Glucose, Phos elevated. Meds noted including Novolin, Bumex, MV, Amaryl, Humulin. Pt with good po intake at this time. Rec continue current diet. RD following.
[2016-06-04 16:32] VITALS: BP 147/67
[2016-06-04 22:19] VITALS: BP 137/51
--- NOTE | 2016-06-04 22:46 | NUR ---
INITIAL ROUNDS COMPLETED AT 1920 HRS. PT DENIED ANY DISCOMFORT. ASSESSMETN COMPLETEDA T 2015 HRS. VSS. SR PER CM HR 83. O2 1.5LNC. L HAND SWOLLEN. L ARM WEAK. PT STATES HAS A PINCHED NERVE. 2+ EDEMA NOTED TO LOWER LEGS. R CHEST HEMOSPLIT NOTED. NS AT 10CC/HR. LUNGS DIMINISHED INBASES BILAT. FISTULA TO R ARM WITH BRUIT AND THRILL. PM FSBS 213. 8 UNITS REGULAR INSULIN GIVNE SUB-Q TO ABD PER S/S. PM MEDS GIVEN. KRAMER DRAINING YELLOW URINE. PT CURRENTLY RESTING WITH EYES CLOSED. RESP EVEN AND REGULAR. BILAT SCD'S. SCD'S REMOVED AND SKIN INSPECTED DURING ASSESSMENT. NO BREAKDOWN NOTED. DAUGHTER AT BEDSIDE. SR UP X2, CALL LIGHT WITHIN REACH.
--- NOTE | 2016-06-05 00:03 | NUR ---
PT RSTING WITH EYES CLOSED. RESP EVEN AND REGULAR. SR UP X2, CALL LIGHT WITHIN REACH.
[2016-06-05 01:26] VITALS: BP 147/54
--- NOTE | 2016-06-05 01:58 | NUR ---
PT RESTING WITH EYES CLOSED. RESP EVEN AND REGULAR. SR UP X2, CALL LIGHT WITHIN REACH.
--- NOTE | 2016-06-05 04:12 | NUR ---
PT AWAKE; DENIES ANY DISCOMFORT. DAUGHTER AT BEDSIDE. SR UP X2, CALL LIGHT WITHIN REACH.
[2016-06-05 04:29] VITALS: BP 193/53
[2016-06-05 06:03] LABS: ANION GAP 11.2 mmol/L (8-16); CALCIUM 8.1 mg/dL (8.5-10.1); CARBON DIOXIDE 29.9 mmol/L (21.0-32.0); CREATININE - SERUM 4.9 mg/dL (0.6-1.3); PHOSPHOROUS 6.3 mg/dL (2.5-4.9); POTASSIUM - SERUM 4.1 mmol/L (3.5-5.1); VANCOMYCIN - RANDOM 13.6 ug/mL (10.0-20.0)
--- NOTE | 2016-06-05 06:48 | NUR ---
VSS THROUGHOUT NIGHT. SR PER CM. PT STATES NORCO HELPED PAIN. AM FSBS 162. 4 UNITS REG INSULIN GIVEN SUB-Q TO R ABD. NEEDS MET;WILL CONTINUE TO MONITOR.
--- NOTE | 2016-06-05 07:37 | NUR ---
AAOX 4 RESP UNLABORED DENIES ANY NEEDS OR DISCOMFORT NAD NOTED
--- NOTE | 2016-06-05 08:09 | NUR ---
ASSESSMENT COMPLETED. NS AT TKO TO RIGHT HEMOSPLIT BLUE PORT. KRAMER CAT PATENT TO BEDSIDE GRAVITY BAG. EDEMA TO FEET. LUNGS DEMISHED. FAMILY AT BEDSIDE WILL MONITOR
[2016-06-05 09:04] VITALS: BP 182/51
--- NOTE | 2016-06-05 11:00 | NUR ---
TO DIALYSIS PER WHEEL CHAIR
--- NOTE | 2016-06-05 15:25 | NUR ---
BACK FROM DIAYLSIS.DENIES ANY NEEDS. SR UP WITH CALL LIGHT IN REACH. WILL MONITOR
[2016-06-05 16:19] VITALS: BP 187/82
--- NOTE | 2016-06-05 16:54 | NUR ---
LYING QUIETLY. DENIES ANY NEEDS. FAMILY AT BEDSIDE WILL MONITOR
[2016-06-05 20:59] VITALS: BP 164/88
--- NOTE | 2016-06-05 23:20 | NUR ---
MARISOL MONROY AT [facility] CHANGE FOR C/O BILAT LEG CRAMPING. ASSESSMENT COMPLETED AT 2009 HRS. VSS. SR PER CM HR 81. O2 1LNC. LUNGS DIMINISHED IN BASES BILAT. KRAMER DRAINING YELLOW URINE. R CHEST HEMOSPLIT CLEAN, DRY AND INTACT. L ARM WITH IMPAIRED ROM- PINCHED NERVE. L HAND WITH 1+ EDEMA. R ARM WITH AV FISTULA . GOOD THRILL NOTED. 1+ LOWER LEG EDEMA. SCD'S OFF PER PT. PM FSBS 199. 4 UNITS REG INSULIN GIVEN SUB-Q TO R ABD PER S/S. PM MEDS GIVEN. PT CURRENTLY RESTING WITH EYES CLOSED. RESP EVEN AND REGULAR. SR UP X2, CALL LIGHT WIHTIN REACH.
[2016-06-06 00:12] VITALS: BP 160/90
--- NOTE | 2016-06-06 00:56 | NUR ---
PT RESTING WITH EYES CLOSED. RESP EVEN AND REGULAR. SR UP X2, CALL LIGHT WITHIN REACH.
--- NOTE | 2016-06-06 02:26 | NUR ---
PT RESTING WITH EYES CLOSED. RESP EVEN AND REGULAR. SR UP X2, CALL LIGHT WITHIN REACH.
[2016-06-06 04:00] VITALS: BP 161/87
--- NOTE | 2016-06-06 04:55 | NUR ---
PT RESTING WITH EYES CLOSED. RESP EVEN AND REGULAR. SR UP X2, CALL LIGHT WITHN REACH.
--- NOTE | 2016-06-06 06:44 | NUR ---
VSS THROUGHOUT NIGHT. SR PER CM. PT STATES NORCO HELPED LEG PAIN. NEEDS MET; WILL CONTINUE TO MONITOR.
--- NOTE | 2016-06-06 07:35 | NUR ---
AM ROUNDING- RECEIVED REPORT FROM WRONG ADDRESS CLERK NURSE STACY ARTHUR. PT IS CURRENTLY SITTING UP IN BED WITH EYES OPEN GETTING A BED BATH BY DAUGHTER WHO IS AT BEDSIDE. ON MONITOR SHOWING SR, HR 85. FSBS ACHS, 181 THIS AM THAT WAS COVERED BY WRONG ADDRESS CLERK NURSE. KRAMER CATHETER SEEN WITH YELLOW URINE. RESERVE RIGHT ARM FOR IMMATURE AVF THAT IS NOT BEING USED CURRENTLY. RIGHT CHEST HEMOSPLIT SEEN THAT IS BEING USED FOR DIALYSIS. PER STACY ARTHUR THERE ARE ORDERS FOR NURSE TO USE BLUE PORT ON HEMOSPLIT FOR IV FLUIDS AND ANTIBIOTICS. NS IS RUNNING AT KVO (10). ON HUMIDIFIED O2 AT 1L VIA NC. SCDS ARE AT BEDSIDE. NO NEED AT CURRENT TIME. WILL CONTINUE TO MONITOR AND CONTINUE WITH PLAN OF CARE.
[2016-06-06 08:19] LABS: ANION GAP 9.6 mmol/L (8-16); CALCIUM 8.4 mg/dL (8.5-10.1); CREATININE - SERUM 3.9 mg/dL (0.6-1.3); PHOSPHOROUS 5.1 mg/dL (2.5-4.9); POTASSIUM - SERUM 3.6 mmol/L (3.5-5.1)
[2016-06-06 08:40] VITALS: BP 206/61
--- NOTE | 2016-06-06 10:29 | NUR ---
PT TO XRAY VIA WHEELCHAIR.
--- NOTE | 2016-06-06 10:44 | NUR ---
PT BACK FROM [facility] VIA WHEELCHAIR.
[2016-06-06 13:46] VITALS: BP 168/69
--- NOTE | 2016-06-06 15:16 | NUR ---
REMOVED PTS KRAEMR CATHETER ORDERED WITH CATH TIP INTACT. PULLED OUT 10CC OF FLUID FROM BALLOON SYRINGE. TOLERATED WELL. GAVE PT BREIF TO PUT ON. WILL CONTINUE TO MONITOR.
--- NOTE | 2016-06-06 15:32 | NUR ---
Rehab Prescreen Order received- the patient noted to be uninsured, will verify insurance with the business office. Will continue to follow the patient at this time. Thank you for this referral! Isha Sutherland Rn Clinical Liaison, [facility] Rehab/[facility]
[2016-06-06 15:58] VITALS: BP 190/89
--- NOTE | 2016-06-06 17:22 | NUR ---
PT SITTING UP IN CHAIR WITH EYES OPEN RESTING EATING DINNER. DAUGHTER IS AT BEDSIDE. NO NEED AT CURRENT TIME. WILL CONTINUE TO MONITOR.
--- NOTE | 2016-06-06 19:28 | NUR ---
INITIAL ROUNDS COMPLETED. PT DENIES ANY DISCOMFORT. FAMILY AT BEDSIDE.
[2016-06-06 20:15] VITALS: BP 175/57
--- NOTE | 2016-06-06 23:30 | NUR ---
ASSESSMENT COMPLETED AT 1945 HRS. VSS. SR PER CM HR 85. O2 1LNC. R CHEST HEMOSPLIT WITH NS AT 10CC/HR. SITE CLEAN,DRY AND INTACT. R ARM AV FISTULA WITH GOOD BRUIT AND THRILL. R ARM WITH TRACE EDEMA. L ARM WITH IMPAIRED ROM DUE TO PINCHED NERVE. 1+ EDEMA TO L HAND. 1+ EDEMA TO LOWER EXTREMITIES. PT DECLINES SCD'S. LUNGS DIMINISHED IN BASES BILAT. PM FSBS 171. 4 UNITS REG INSULIN GIVEN SUB-Q TO UPPER L ABS. PM MEDS GIVEN. PT CURRENTLY RESTING WITH EYES CLOSED. RESP EVEN AND REGULAR. SR UP X2, CALL LIGHT WITHIN REACH.
--- NOTE | 2016-06-07 00:28 | NUR ---
VSS. PT DENIES ANY NEEDS AT THIS TIME. WILL CONTINUE TO MONITOR.
[2016-06-07 01:00] VITALS: BP 149/60
--- NOTE | 2016-06-07 02:14 | NUR ---
PT RESTING WITH EYES CLOSED. RESP EVEN AND REGULAR. SR UP X2, CALL LIGHT WITHIN REACH.
--- NOTE | 2016-06-07 04:38 | NUR ---
PT RESTING WITH EYES CLOSED. RESP EVEN AND REGULAR. SR UP X2, CALL LIGHT WITHIN REACH.
[2016-06-07 04:45] VITALS: BP 168/54
[2016-06-07 05:42] LABS: BASOPHILS 0.4 % (0.0-2.0); EOSINOPHILS 4.3 % (0-7); HEMATOCRIT 23.9 % (36.0-48.0); IMMATURE GRANULOCYTES 0.1 % (0-5); MCH 27.6 pg (26.0-34.0); MCHC 31.4 g/dL (31.0-37.0); MCV 87.9 fL (80.0-100.0); MEAN PLATELET VOLUME 10.4 fL (7.4-10.4); NEUTROPHILS 65.2 % (40-80); RBC 2.72 10x6/uL (4.00-5.40); RDW 12.9 % (11.5-14.5); WBC 7.5 10x3/uL (4.8-10.8)
[2016-06-07 05:56] LABS: ANION GAP 9.1 mmol/L (8-16); CALCIUM 8.4 mg/dL (8.5-10.1); CARBON DIOXIDE 31.4 mmol/L (21.0-32.0); CREATININE - SERUM 4.6 mg/dL (0.6-1.3); POTASSIUM - SERUM 3.5 mmol/L (3.5-5.1)
[2016-06-07 05:58] LABS: PHOSPHOROUS 6.7 mg/dL (2.5-4.9)
[2016-06-07 06:02] LABS: PLATELET COUNT 228 10x3/uL (130-400)
[2016-06-07 06:03] LABS: HEMOGLOBIN 7.5 g/dL (12-16)
--- NOTE | 2016-06-07 06:32 | NUR ---
VSS THROUGHOUT NGIHT. SR PER CM. PT DENIED ANY DISCOMFORT. NEEDS MET; WILL CONTINUE TO MONITOR.
[2016-06-07 07:58] VITALS: BP 158/54
--- NOTE | 2016-06-07 10:27 | NUR ---
Rehab Note- spoke with Ermelinda Grace in the business office & the patient has no payer source at this time, but is working on getting Medicare apporved sometime in June. Thank you for this referral! Isha Sutherland RN Clinical Liaison, [facility] Rehab/[facility]
[2016-06-07 11:53] VITALS: BP 155/55
[2016-06-07 16:40] VITALS: BP 156/114
--- NOTE | 2016-06-07 19:30 | NUR ---
SITTING ON SIDE OF BED, DAUGHTER AT BEDSIDE ASSISTING WITH HAIR CARE. VOICES NO C/O PAIN OR DISCOMFORT AT THIS TIME. RESERVING RT ARM NEW GRAFT IN PLACE. RT CHEST HEMASPLIT INTACT AND LOCKED. TELEMETRY SHOWING HR SR PER MARINE RIGGER. UP WITH ASSIST TO BCS W/O DIFF. C/L IN REACH. CONTINUE TO MONITOR.
[2016-06-07 20:00] VITALS: BP 148/60
[2016-06-08 00:11] VITALS: BP 160/55
--- NOTE | 2016-06-08 03:00 | NUR ---
EYES CLOSED, RESP UNLAB WITH NO S/S OF ACUTE DISTRESS NOTED. C/L IN REACH, CONTINUE TO MONITOR.
[2016-06-08 04:00] VITALS: BP 157/53
[2016-06-08 05:56] LABS: BASOPHILS 0.7 % (0.0-2.0); EOSINOPHILS 5.2 % (0-7); HEMATOCRIT 23.6 % (36.0-48.0); IMMATURE GRANULOCYTES 0.3 % (0-5); LYMPHOCYTES 19.3 % (15-50); MCH 27.4 pg (26.0-34.0); MCHC 31.4 g/dL (31.0-37.0); MCV 87.4 fL (80.0-100.0); MEAN PLATELET VOLUME 10.3 fL (7.4-10.4); MONOCYTES 12.3 % (2-11); NEUTROPHILS 62.2 % (40-80); PLATELET COUNT 240 10x3/uL (130-400); RDW 12.8 % (11.5-14.5)
[2016-06-08 05:58] LABS: HEMOGLOBIN 7.4 g/dL (12-16)
[2016-06-08 06:18] LABS: % SATURATION 17 % (15-55); IRON 32 ug/dl (35-150); TOTAL IRON BIND CAPACITY 185 ug/dl (260-445); UNSAT IRON BIND CAPACITY 153 ug/dl (150-375)
[2016-06-08 06:34] LABS: CALCIUM 8.5 mg/dL (8.5-10.1); CARBON DIOXIDE 30.5 mmol/L (21.0-32.0); CREATININE - SERUM 5.3 mg/dL (0.6-1.3); PHOSPHOROUS 6.2 mg/dL (2.5-4.9); POTASSIUM - SERUM 3.5 mmol/L (3.5-5.1)
[2016-06-08 08:01] VITALS: BP 170/90
--- NOTE | 2016-06-08 10:10 | NUR ---
ALERT AND ORIENTED X4. TRANSFER FROM CHAIR TO WHEELCHAIR. TAKEN TO DIALYSIS VIA WHEELCHAIR. PRBC TRANSFUSION DURING DIALYSIS. CONTINUE PLAN OF CARE AND SAFETY PRECAUTIONS.
[2016-06-08] MEDS ORDERED: PEPCID20 MG PO (10:42)
--- NOTE | 2016-06-08 15:00 | NUR ---
ALERT AND ORIENTED X4. DISCHARGE INSTRUCTIONS GIVEN VERBALLY AND WRITTEN. DISCHARGE PAPERS SIGNED ON CHART. ESCORT TO RIDE VIA WHEELCHAIR. REMAINS FREE FROM INJURY.
== END 2016-06-08 15:01 | disposition home or self-care (01) | DRG 264 ==
LOC: D.M2 13:40 → D.ICU 13:40 → D.M2 05-29 21:11
PROVIDERS: Internal Medicine Nephrology; Internal Medicine Pulmonary Disease; Surgery; ADMIT Internal Medicine
PROC: 05HM33Z Insertion of Infusion Device into Right Internal Jugular Vein, Percutaneous Approach (ICD-10-PCS; 2016-05-28)
PROC: 03170JF Bypass Right Brachial Artery to Lower Arm Vein with Synthetic Substitute, Open Approach (ICD-10-PCS; 2016-05-28)
PROC: B5131ZA Fluoroscopy of Right Jugular Veins using Low Osmolar Contrast, Guidance (ICD-10-PCS; 2016-05-28)
PROC: B543ZZA Ultrasonography of Right Jugular Veins, Guidance (ICD-10-PCS; 2016-05-28)
PROC: 5A1D60Z (ICD-10-PCS; 2016-05-28)
PROC: 5A1D60Z (ICD-10-PCS; principal; 2016-05-28 13:00)
PROC: 05HM33Z Insertion of Infusion Device into Right Internal Jugular Vein, Percutaneous Approach (ICD-10-PCS; 2016-06-01)
DX: I13.2 Hypertensive heart and chronic kidney disease with heart failure and with stage 5 chronic kidney disease, or end stage renal disease (principal); J18.9 Pneumonia, unspecified organism; N18.6 End stage renal disease; N39.0 Urinary tract infection, site not specified; N25.81 Secondary hyperparathyroidism of renal origin; E11.22 Type 2 diabetes mellitus with diabetic chronic kidney disease; Z99.2 Dependence on renal dialysis; Z79.4 Long term (current) use of insulin; E11.21 Type 2 diabetes mellitus with diabetic nephropathy; K21.9 Gastro-esophageal reflux disease without esophagitis; D63.1 Anemia in chronic kidney disease; M25.519 Pain in unspecified shoulder; I50.9 Heart failure, unspecified; E87.5 Hyperkalemia; Z91.19 Patient's noncompliance with other medical treatment and regimen; B95.2 Enterococcus as the cause of diseases classified elsewhere; B95.7 Other staphylococcus as the cause of diseases classified elsewhere

== ENCOUNTER 2020-07-03 10:37 | Inpatient (IN) | payer MEDICARE ==
[~2020-07-03] VITALS: Ht 162.6 cm; Wt 71.5 kg
[~2020-07-03 10:37] MED LIST changes: +DIOVAN80 MG PO; +GABAPENTIN100 MG PO; +PEPCID20 MG PO; +SODIUM BICARBO325 MG PO
[2020-07-03 11:36] LABS: BASOPHILS 0.1 % (0-2); HEMATOCRIT 33.7 % (36.0-48.0); HEMOGLOBIN 10.9 g/dL (12-16); IMMATURE GRANULOCYTES 0.2 % (0-5); LYMPHOCYTE ABS# 0.51 10x3/uL (1.18-3.74); LYMPHOCYTES 3.6 % (15-50); MCH 29.2 pg (26.0-34.0); MCHC 32.3 g/dL (31.0-37.0); MCV 90.3 fL (80.0-100.0); MEAN PLATELET VOLUME 11.4 fL (7.4-10.4); MONOCYTES 7.3 % (2-11); NEUTROPHIL ABS# 12.59 10x3/uL (1.56-6.13); NEUTROPHILS 87.8 % (40-80); PLATELET COUNT 204 10x3/uL (130-400); RBC 3.73 10x6/uL (4.00-5.40); WBC 14.3 10x3/uL (4.8-10.8)
[2020-07-03 11:52] LABS: ALBUMIN 2.9 g/dL (3.4-5.0); ANION GAP 15.6 mmol/L (8-16); BILIRUBIN - TOTAL 0.63 mg/dL (0.2-1.3); CALCIUM 9.1 mg/dL (8.5-10.1); CARBON DIOXIDE 27.4 mmol/L (21.0-32.0); CREATININE - SERUM 5.2 mg/dL (0.6-1.3); PROTEIN - SERUM 7.3 g/dL (6.4-8.2)
[2020-07-03 12:33] VITALS: BP 186/52
[2020-07-03 15:02] VITALS: BP 185/62
[2020-07-03] MEDS ORDERED: HYDROXYCHLOROQ200 MG PO (15:28)
[2020-07-03] MEDS ORDERED: PROBIOTIC BLEN1 EACH PO (15:29)
[2020-07-03] MEDS ORDERED: RENA-VITE TABL0.8 MG PO (15:30)
[2020-07-03] MEDS ORDERED: RENVELA800 MG PO (15:30)
[2020-07-03] MEDS ORDERED: COREG12.5 MG PO (15:31)
[2020-07-03] MEDS ORDERED: CATAPRES TTS-20.2 MG TD (15:33)
[2020-07-03] MEDS ORDERED: HYDRALAZINE HCL50 MG PO (15:34)
[2020-07-03 15:35] VITALS: BP 185/62
[2020-07-03 22:11] VITALS: BP 167/40
--- NOTE | 2020-07-03 22:30 | NUR ---
LEFT FOOT WITH MALODOR, OLD DRESSING REMOVED PT WITH NOTED BLACK ESCHAR/GANGRENE APPEARING TOE AND PAD OF FOOT. COVERED WITH NEW DRESSING. PT TOLERATED WELL DENIES ANY ISSUES AT THIS TIME WILL CONTINUE TO MONITOR
[2020-07-04 02:11] VITALS: BP 147/41
[2020-07-04 04:36] LABS: BASOPHILS 0.2 % (0-2); EOSINOPHILS 1.5 % (0-7); HEMATOCRIT 31.2 % (36.0-48.0); IMMATURE GRANULOCYTES 0.3 % (0-5); LYMPHOCYTE ABS# 0.91 10x3/uL (1.18-3.74); LYMPHOCYTES 7.8 % (15-50); MCH 28.7 pg (26.0-34.0); MCHC 32.1 g/dL (31.0-37.0); MCV 89.4 fL (80.0-100.0); MEAN PLATELET VOLUME 11.4 fL (7.4-10.4); MONOCYTES 6.7 % (2-11); NEUTROPHIL ABS# 9.78 10x3/uL (1.56-6.13); NEUTROPHILS 83.5 % (40-80); PLATELET COUNT 214 10x3/uL (130-400); RBC 3.49 10x6/uL (4.00-5.40); RDW 14.1 % (11.5-14.5); WBC 11.7 10x3/uL (4.8-10.8)
[2020-07-04 04:44] LABS: APTT 35.8 SECONDS (22.8-39.4); INR 1.3 (0.85-1.17)
[2020-07-04 04:59] LABS: ALBUMIN 2.3 g/dL (3.4-5.0); ANION GAP 13.5 mmol/L (8-16); BILIRUBIN - TOTAL 0.49 mg/dL (0.2-1.3); CALCIUM 8.9 mg/dL (8.5-10.1); CARBON DIOXIDE 27.6 mmol/L (21.0-32.0); MAGNESIUM - SERUM 1.8 mg/dL (1.8-2.4); POTASSIUM - SERUM 4.1 mmol/L (3.5-5.1); PROTEIN - SERUM 6.8 g/dL (6.4-8.2); VANCOMYCIN - RANDOM 11.4 ug/mL (10.0-20.0)
[2020-07-04 05:25] VITALS: BP 145/45
[2020-07-04 08:42] VITALS: BP 153/54
[2020-07-04 11:37] VITALS: BP 170/53
[2020-07-04 12:51] VITALS: Ht 162.6 cm; Wt 71.5 kg
--- NOTE | 2020-07-04 21:16 | OP ---
PATIENT NAME: MRAY QUINTERO MEDICAL RECORD: [id number] :51 LOCATION:D.M2 D.2109 ADMISSION DATE:07/03/20 SURGEON: MATT FRANCIS DO DATE OF OPERATION: 07/04/2020 PROCEDURE PERFORMED: Left below-knee amputation. PREOPERATIVE DIAGNOSIS: Gangrene of the left foot and osteomyelitis. POSTOPERATIVE DIAGNOSIS: Gangrene of the left foot and osteomyelitis. INDICATIONS: Ms. Quintero is a 64-year-old female who has had gangrene of the left foot for quite some time, got to the point where it was quite malodorous and she had a CT which showed gas in the soft tissues and osteomyelitis as well as some fractures and osteopenia. I discussed at length with her due to her being on dialysis and also being diabetic. She was at very high risk for further infection and would probably be best to amputate the foot and she was okay with. She is aware of the risks including further infection, bleeding, damage to nerves and vessels, phantom pain, continued pain, need for further surgery, stump site revision, need for fitting prosthesis and even and wound dehiscence as well. She signed the consent. SURGEON: Matt Francis DO DESCRIPTION OF PROCEDURE: The patient was taken to the operative suite in a supine position, given general anesthetic and LMA was placed. She is on antibiotics on the floor. The left lower extremity was prepped and draped in sterile fashion. Timeout was performed, everyone was in agreement to the correct side, site, patient, and procedure. I then began by marking out a fishmouth incision and exsanguinated the left lower extremity with Esmarch and tourniquet was inflated to 350 mmHg, was up for 9 minutes. I then made an incision, fishmouth incision with blade and she was bleeding, so we let the tourniquet down. We were worried that it was a venous tourniquet. I then coagulated any bleeding with Bovie and we then got Aquamantys and plasma blade and went compartment by compartment cutting through each of the compartments leaving the posterior aspect longer and posterior superficial compartment where gastroc as well. I then cut through the tibia and a little bit in the fibula 1 cm proximal to that and tied off the vessels, the traction neurectomy on the posterior tibial nerve. I then tied all the vessels off and coagulated them with Aquamantys. There was very little to no bleeding at that time. I then drilled a hole through the tibial stump that I cut and ran #2 Ethibond through it and then in a Jamie-Alban type stitch through the gastroc and brought it up and then back through the tibia and tied it down creating a nice bumper pad on the stump and then cutting excess tissue that needed to close the wound. I then used #1 Vicryl in a lambko-xp-awdfj fashion to close the fascia and 2-0 Vicryl in interrupted fashion on the skin. Then, 2-0 Prolene in a horizontal mattress fashion on the skin. I then covered the wound with Adaptic, 4 x 4s, ABD, Kerlix, and Coban lightly wrapped. She was then awakened and taken to recovery in stable condition. BLOOD LOSS: Minimal. COMPLICATIONS: None. TRANSINT:[id number] Voice Confirmation ID: [id number] DOCUMENT ID: [id number] OPERATIVE REPORT [id number] MARY QUINTERO MICHAEL D, DO at 2116 CC: [id number] DICTATION DATE: 07/04/20 184 SIDE SEAM TENDER: 07/04/202052 ADM IN [facility] [address] [place] [address]
[2020-07-04 21:31] VITALS: BP 127/45
[2020-07-05 01:11] VITALS: BP 143/44
[2020-07-05 05:13] LABS: BASOPHILS 0.3 % (0-2); EOSINOPHILS 1.4 % (0-7); HEMATOCRIT 29.1 % (36.0-48.0); HEMOGLOBIN 9.1 g/dL (12-16); IMMATURE GRANULOCYTES 0.4 % (0-5); LYMPHOCYTE ABS# 0.83 10x3/uL (1.18-3.74); LYMPHOCYTES 10.9 % (15-50); MCH 28.4 pg (26.0-34.0); MCHC 31.3 g/dL (31.0-37.0); MCV 90.9 fL (80.0-100.0); MEAN PLATELET VOLUME 11.6 fL (7.4-10.4); MONOCYTES 9.4 % (2-11); NEUTROPHIL ABS# 5.92 10x3/uL (1.56-6.13); NEUTROPHILS 77.6 % (40-80); PLATELET COUNT 217 10x3/uL (130-400); RDW 14.2 % (11.5-14.5)
[2020-07-05 05:18] LABS: WBC 7.6 10x3/uL (4.8-10.8)
[2020-07-05 05:19] VITALS: BP 145/49
[2020-07-05 07:30] VITALS: BP 148/46
[2020-07-05 08:31] LABS: ALBUMIN 2.4 g/dL (3.4-5.0); ANION GAP 18.6 mmol/L (8-16); BILIRUBIN - TOTAL 0.47 mg/dL (0.2-1.3); CALCIUM 8.2 mg/dL (8.5-10.1); CARBON DIOXIDE 24.5 mmol/L (21.0-32.0); PROTEIN - SERUM 6.4 g/dL (6.4-8.2)
[2020-07-05 08:39] LABS: CREATININE - SERUM 7.6 mg/dL (0.6-1.3); POTASSIUM - SERUM 5.1 mmol/L (3.5-5.1)
--- NOTE | 2020-07-05 13:36 | NUR ---
I have reviewed this patient and I concur with the Shift Assessment completed by the Licensed Practical Nurse today this shift.
[2020-07-05 15:00] VITALS: BP 140/53
[2020-07-05 21:07] VITALS: BP 144/47
[2020-07-06] VITALS (7 sets, daily range): BP systolic 136–172; BP diastolic 48–73
[2020-07-06 06:46] LABS: ALBUMIN 2.3 g/dL (3.4-5.0); ANION GAP 15.9 mmol/L (8-16); BILIRUBIN - TOTAL 0.45 mg/dL (0.2-1.3); CALCIUM 8.4 mg/dL (8.5-10.1); CARBON DIOXIDE 27.7 mmol/L (21.0-32.0); CREATININE - SERUM 5.7 mg/dL (0.6-1.3); MAGNESIUM - SERUM 1.7 mg/dL (1.8-2.4); POTASSIUM - SERUM 4.6 mmol/L (3.5-5.1); PROTEIN - SERUM 6.6 g/dL (6.4-8.2); VANCOMYCIN - RANDOM 16.4 ug/mL (10.0-20.0)
[2020-07-06 06:51] LABS: BASOPHILS 0.6 % (0-2); EOSINOPHILS 2.8 % (0-7); HEMATOCRIT 29.8 % (36.0-48.0); HEMOGLOBIN 9.4 g/dL (12-16); IMMATURE GRANULOCYTES 0.4 % (0-5); LYMPHOCYTE ABS# 0.98 10x3/uL (1.18-3.74); LYMPHOCYTES 9.6 % (15-50); MCH 28.7 pg (26.0-34.0); MCHC 31.5 g/dL (31.0-37.0); MCV 91.1 fL (80.0-100.0); MEAN PLATELET VOLUME 11.1 fL (7.4-10.4); MONOCYTES 9.2 % (2-11); NEUTROPHIL ABS# 7.88 10x3/uL (1.56-6.13); NEUTROPHILS 77.4 % (40-80); PLATELET COUNT 209 10x3/uL (130-400); RBC 3.27 10x6/uL (4.00-5.40); RDW 14.1 % (11.5-14.5)
[2020-07-06 06:52] LABS: WBC 10.2 10x3/uL (4.8-10.8)
--- NOTE | 2020-07-06 08:08 | NUR ---
AM MEDS GIVEN TO PT, THERE WERE A LOT OF MEDS THAT PT REFUSED BOTH PT AND PT'S DAUGHTER STATED THAT SHE DID NOT TAKE THOSE MEDICAITONS. PT A/O X4, RESP EVEN AND NONLABORED ON 2L NC. LT HAND IV SL. SR-63 ON TELE. BKA WITH DRESSING CDI. ALL NEEDS MET, CALL LIGHT IN REACH.
--- NOTE | 2020-07-06 11:15 | NUR ---
REHAB PRESCREEN RECEIVED. PATIENT LOOKS LIKE A [employer]OOOD CANDIDATE FOR REHAB. AT THIS TIME WE DO NOT HAVE AN OPEN BED TO PUT HER IN, BUT WOULD LIKE THE OPPORTUNITY TO CARE FOR HER SOON A BED BECOMES OPEN ON TUESDAY OR TUESDAY. THANK YOU FOR THIS REFERRAL. NIMESH POST RN CLINICAL LIAISON, INPATIENT REHAB.
--- NOTE | 2020-07-06 12:36 | NUR ---
BED BATH DONE BY DAUGHTER, AND COMPLETE LINEN CHANGE PROVIDED BY CHARGE PREPARATION TECHNICIAN.
--- NOTE | 2020-07-06 13:17 | MORECARE ---
CASE MANAGEMENT DISCHARGE SUMMARY PATIENT: MARY QUINTERO UNIT: [id number] ADM DATE: 07/03/20 AGE: 64 : 53 SEX: F ROOM/BED: D.2109 AUTHOR: CEDRICK BOOTHE PHYSICIAN: REFERRING PHYSICIAN: SARATH RICHTER DO DATE OF SERVICE: 07/06/20 Case Management Discharge Planning Summary DCP REVIEW SUMMARY ANTICIPATED D/C DATE: EXPECTED LOS : CASE STATUS: DCP Initiated INITIAL REVIEW: 07/06/2020 INITIAL REVIEWER: Mattie Garcia FINAL DISCHARGE DISPOSITION: : FINAL REVIEWER: FINAL REVIEW DATE: DCP Focus Questions & Answers QUESTION: ANSWER : PATIENT: MARY QUINTERO ENCOUNTER: [id number] MEDICAL RECORD#: [id number] ADMISSION DATE: 07/03/2020 DISCHARGE DATE: ATTENDING MD: SARATH DELATORRE : AGE: 64 MARITAL STATUS: M DC PLAN ID: [id number] FACILITY: [facility] PRINTED ON: 07/06/20 13:17 CT All edits/amendments must be made on the electronic document DICTATION DATE: 07/06/20 131 CHEMIST PHYSICAL: DM 07/06/20 1317 RPT#: [id number] DC DATE: STATUS: ADM IN [facility] [address] [place] [address] END OF REPORT
--- NOTE | 2020-07-06 13:28 | MORECARE ---
CASE MANAGEMENT DISCHARGE SUMMARY PATIENT: MARY QUINTERO UNIT: [id number] ADM DATE: 07/03/20 AGE: 64 : 53 SEX: F ROOM/BED: D.[facility]0 AUTHOR: SHYANNDOC PHYSICIAN: REFERRING PHYSICIAN: SARATH RICHTER DO DATE OF SERVICE: 07/06/20 Case Management Discharge Planning Summary DCP REVIEW SUMMARY ANTICIPATED D/C DATE: EXPECTED LOS : CASE STATUS: DCP Initiated INITIAL REVIEW: 07/06/2020 INITIAL REVIEWER: Mattie Garcia FINAL DISCHARGE DISPOSITION: : FINAL REVIEWER: FINAL REVIEW DATE: DCP Focus Questions & Answers DCP Screen QUESTION: ANSWER High Risk Factors: : Polypharmacy (greater than 10 meds) DCP Evaluation QUESTION: ANSWER Patient's ability to cope with chronic illness : d. No chronic illness Would patient like to participate in any Care Coordination programs (if applicable): : Not applicable Mental health screen: : No mental health history DCP Re-evaluation QUESTION: ANSWER Would patient like to participate in any Care Coordination programs (if applicable): : Not applicable PATIENT: MARY QUINTERO ENCOUNTER: [id number] MEDICAL RECORD#: [id number] ADMISSION DATE: 07/03/2020 DISCHARGE DATE: ATTENDING MD: SARATH DELATORRE : AGE: 64 MARITAL STATUS: M DC PLAN ID: [id number] FACILITY: [facility] PRINTED ON: 07/06/20 13:28 CT All edits/amendments must be made on the electronic document DICTATION DATE: 07/06/20 132 DB2 DEVELOPER: LEI 07/06/20 1328 RPT#: [id number] DC DATE: STATUS: ADM IN [facility] [address] [place] [address] END OF REPORT
--- NOTE | 2020-07-06 13:40 | MORECARE ---
CASE MANAGEMENT DISCHARGE SUMMARY PATIENT: MARY QUINTERO UNIT: [id number] ADM DATE: 07/03/20 AGE: 64 : 53 SEX: F ROOM/BED: D.0395 AUTHOR: SHYANN,CEDRICK PHYSICIAN: REFERRING PHYSICIAN: SARATH RICHTER DO DATE OF SERVICE: 07/06/20 Case Management Discharge Planning Summary COMMENTS ENTERED DATE: 07/06/20 13:33 CT COMMENT TYPE: Discharge Planning REVIEWER: Mattie Garcia CM met with patient and daughter to discuss discharge planning/needs. Daughter states she lives with her spouse. States she has steps to enter the home, so she is going to get a ramp built while patient is in rehab. She will need a wheelchair and they request that I use [employer]. I will send chart notes and order and inform them that her plan is rehab prior to home. I discussed availability of rehab vs SNF. They would like to go to a facility in [place], either [facility] or [facility]. I gave the list to daughter and she will call in am and "check out" the facilities and give me her choice in am. States she goes to [facility] in [place] MW at 1100, drives her. After rehab she plans on staying with her daughter in [place], but will still transport to dialysis. Her PCP is [facility] in [place], but hasn't seen her in a while, typically sees Dr. Soares or Dr. Kellogg. She is current with [facility] in [place], states they come on Tuesday and for nursing and physical therapy. CM will continue to follow and assist with discharge planning/needs. DCP REVIEW SUMMARY ANTICIPATED D/C DATE: EXPECTED LOS : CASE STATUS: DCP Initiated INITIAL REVIEW: 07/06/2020 INITIAL REVIEWER: Mattie Garcia FINAL DISCHARGE DISPOSITION: : FINAL REVIEWER: FINAL REVIEW DATE: DCP Focus Questions & Answers DCP Screen QUESTION: ANSWER High Risk Factors: : Polypharmacy (greater than 10 meds) DCP Evaluation QUESTION: ANSWER Patient and/or caregiver agree upon recommended discharge plan? : Yes Family / Caregiver's ability to cope with chronic illness: : a. Adequate (ability to meet patient's medical needs, ensures patient attends medical appts.) Patient's current cognitive status: : *Oriented to person, place, situation, time and present Patient gives permission to discuss discharge plans with: (name, relationship and number) : Aniya Quintero - R - [phone] Patient's ability to cope with chronic illness : b. Minimal (2 - 3 ED visits in 6 mos., limited financial resources, occasionally misses appts.) Does the patient have the ability to pay for or attain post discharge needs / services? : Yes Functional screen assessment: : New onset in difficulty in gait, balance, or transfer difficulties Family / Caregiver's ability to cope with chronic illness: : a. Adequate (ability to meet patient's medical needs, ensures patient attends medical appts.) Physical Status: : Partial care dependence Physical Status: : Mobility impaired Physical Status: : Compromised skin integrity Equipment needed for post hospitalization: : Wheelchair Is there a likelihood that the patient will require additional services to return to the preadmission environment? 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 : No Baseline cognitive status: : *Oriented to person, place, situation, time and present Physical environment modification needed / anticipated for discharge: : Yes Preadmission facility can/cannot provide post hospital level of care needs: : Cannot - at higher level of care than preadmission Planned post hospital services available for patient? : Yes Pharmacy name(s): : [facility] in [place] Does Patient have transportation to get home and to follow-up medical appointments when discharged from the hospital? : Yes Would patient like to participate in any Care Coordination programs (if applicable): : Not applicable Does the patient have electricity at home? : Yes Does the patient have running water in their house? : Yes Equipment in use: : Walker - Rollator Equipment agency name and contact information: : Wants to use [employer] for wheelchair Mental health screen: : No mental health history Psychosocial status: : Adult with physical limitations Resources / Services in place: : Home health Resources / Services in place: : Dialysis - facility hemodialysis Contact information for resources in use: : [employer] in [place] [facility] in [place] MWF at 1100 DCP Re-evaluation QUESTION: ANSWER Would patient like to participate in any Care Coordination programs (if applicable): : Not applicable PATIENT: MARY QUINTERO ENCOUNTER: [id number] MEDICAL RECORD#: [id number] ADMISSION DATE: 07/03/2020 DISCHARGE DATE: ATTENDING MD: SARATH DELATORRE : AGE: 64 MARITAL STATUS: M DC PLAN ID: [id number] FACILITY: [facility] PRINTED ON: 07/06/20 13:39 CT All edits/amendments must be made on the electronic document DICTATION DATE: 07/06/201338 SIMULATION SPECIALIST: LEI 07/06/201338 RPT#: [id number] DC DATE: STATUS: ADM IN [facility] [address] [place] [address] END OF REPORT
--- NOTE | 2020-07-06 13:47 | NUR ---
PATIENT AND DAUGHT HAVE STATED THEY WANT TO GO TO A FACILITY IN [place] INSTEAD OF INPATIENT REHAB, I WILL STOP THE SCREENING PROCESS. WE ARE AVAILABLE IF THE PATIENT CHANGES HER MIND PRIOR TO DISCHARGE. NIMESH POST RN CLINICAL LIAISON, INPATIENT REHAB.
--- NOTE | 2020-07-06 15:06 | NUR ---
4MG OF MORPHINE GIVEN FOR PAIN LEVEL OF 5/10. PT DENIES ANY OTHER NEEDS, CALL LIGHT IN REACH, FAMILY AT BEDSIDE.
--- NOTE | 2020-07-06 15:21 | NUR ---
KNEE IMOBILAZER PUT ON.
[2020-07-07] VITALS: BP 160/49
[2020-07-07 04:00] VITALS: BP 155/42
[2020-07-07 05:29] LABS: BASOPHILS 0.5 % (0-2); EOSINOPHILS 2.3 % (0-7); HEMATOCRIT 28.5 % (36.0-48.0); IMMATURE GRANULOCYTES 0.6 % (0-5); MCH 28.4 pg (26.0-34.0); MCHC 31.6 g/dL (31.0-37.0); MCV 89.9 fL (80.0-100.0); MEAN PLATELET VOLUME 10.8 fL (7.4-10.4); MONOCYTES 9.1 % (2-11); NEUTROPHIL ABS# 6.25 10x3/uL (1.56-6.13); NEUTROPHILS 76.5 % (40-80); PLATELET COUNT 211 10x3/uL (130-400); RBC 3.17 10x6/uL (4.00-5.40); RDW 13.7 % (11.5-14.5); WBC 8.2 10x3/uL (4.8-10.8)
[2020-07-07 05:51] LABS: ALBUMIN 2.1 g/dL (3.4-5.0); ANION GAP 13.5 mmol/L (8-16); BILIRUBIN - TOTAL 0.38 mg/dL (0.2-1.3); CALCIUM 8.4 mg/dL (8.5-10.1); CARBON DIOXIDE 27.9 mmol/L (21.0-32.0); MAGNESIUM - SERUM 1.9 mg/dL (1.8-2.4); POTASSIUM - SERUM 4.4 mmol/L (3.5-5.1); PROTEIN - SERUM 6.3 g/dL (6.4-8.2); VANCOMYCIN - RANDOM 28.1 ug/mL (10.0-20.0)
[2020-07-07 05:52] LABS: CREATININE - SERUM 7.3 mg/dL (0.6-1.3)
[2020-07-07 08:00] VITALS: BP 149/78
--- NOTE | 2020-07-07 08:11 | NUR ---
AM MEDS GIVEN, PT SITTING UP IN BED EATING BREAKFAST TRAY. RR EVEN NON LABORED ON ROOM AIR. PT DAUGHTER AT BEDSIDE. NO NEEDS VOICED. CLWR.
--- NOTE | 2020-07-07 10:22 | NUR ---
PT ASSISTED TO AND FROM BSC WITH ASSISTANCE FROM PHYSICAL THERAPY. PT MAX ASSIST. BM NOTED. LILLIAM CARE PREFORMED. PT DENIES ANY FURTHER NEEDS. CLWR.
--- NOTE | 2020-07-07 10:59 | NUR ---
PRN PAIN MEDICATION GIVEN D/T PHANTOM PAIN TO LLE. PT ALSO GIVEN PRN ZOFRAN D/T NAUSEA FROM THE MOVEMENT OF USING THE BSC AND ACTIVITY. PT TO GO TO DIALYSIS. PT AWARE AND DENIES ANY FURTHER NEEDS. CLWR.
[2020-07-07 11:00] VITALS: BP 130/50
--- NOTE | 2020-07-07 11:23 | NUR ---
PT TAKEN TO DIALYSIS AT THIS TIME. CRACKERS AND JUICE GIVEN ON HER ROUTE OUT.
--- NOTE | 2020-07-07 12:10 | NUR ---
PT TAKEN LUNCH TRAY AND RENEGAL AT THIS TIME IN DIAYLSIS. PT EYES CLOSED, AROUSES EASILY. NO NEEDS VOICED.
--- NOTE | 2020-07-07 13:06 | MORECARE ---
CASE MANAGEMENT DISCHARGE SUMMARY PATIENT: MARY QUINTERO UNIT: [id number] ADM DATE: 07/03/20 AGE: 64 : 53 SEX: F ROOM/BED: D.0373 AUTHOR: SYHANN,DOC PHYSICIAN: REFERRING PHYSICIAN: SARATH RICHTER DO DATE OF SERVICE: 07/07/20 Case Management Discharge Planning Summary COMMENTS ENTERED DATE: 07/07/20 12:52 CT COMMENT TYPE: Discharge Planning REVIEWER: Mattie Garcia DAUGHTER CALLED AND WOULD LIKE REFERRAL FAXED TO [facility]. I FAXED REFERRAL AND NOTIFIED DARIUSZ. I SPOKE WITH [employer] AND THEY WILL DELIVER WHEELCHAIR WHEN DISCHARGED FROM [facility]. ENTERED DATE: 07/06/20 13:33 CT COMMENT TYPE: Discharge Planning REVIEWER: Mattie Garcia CM met with patient and daughter to discuss discharge planning/needs. Daughter states she lives with her spouse. States she has steps to enter the home, so she is going to get a ramp built while patient is in rehab. She will need a wheelchair and they request that I use [employer]. I will send chart notes and order and inform them that her plan is rehab prior to home. I discussed availability of rehab vs SNF. They would like to go to a facility in [place], either [facility] or [facility]. I gave the list to daughter and she will call in am and "check out" the facilities and give me her choice in am. States she goes to [facility] in [place] MWF at 1100, drives her. After rehab she plans on staying with her daughter in [place], but will still transport to dialysis. Her PCP is [facility] in [place], but hasn't seen her in a while, typically sees Dr. Soares or Dr. Kellogg. She is current with [facility] in [place], states they come on Tuesday and for nursing and physical therapy. CM will continue to follow and assist with discharge planning/needs. DCP REVIEW SUMMARY ANTICIPATED D/C DATE: EXPECTED LOS : CASE STATUS: DCP Initiated INITIAL REVIEW: 07/06/2020 INITIAL REVIEWER: Mattie Garcia FINAL DISCHARGE DISPOSITION: : FINAL REVIEWER: FINAL REVIEW DATE: DCP Focus Questions & Answers DCP Screen QUESTION: ANSWER High Risk Factors: : Polypharmacy (greater than 10 meds) DCP Evaluation QUESTION: ANSWER Patient's current cognitive status: : *Oriented to person, place, situation, time and present Patient's ability to cope with chronic illness : b. Minimal (2 - 3 ED visits in 6 mos., limited financial resources, occasionally misses appts.) Patient gives permission to discuss discharge plans with: (name, relationship and number) : Aniya Quintero [facility] - [phone] Patient and/or caregiver agree upon recommended discharge plan? : Yes Family / Caregiver's ability to cope with chronic illness: : a. Adequate (ability to meet patient's medical needs, ensures patient attends medical appts.) Functional screen assessment: : New onset in difficulty in gait, balance, or transfer difficulties Physical Status: : Compromised skin integrity Physical Status: : Mobility impaired Physical Status: : Partial care dependence Does the patient have the ability to pay for or attain post discharge needs / services? : Yes Family / Caregiver's ability to cope with chronic illness: : a. Adequate (ability to meet patient's medical needs, ensures patient attends medical appts.) Functional screen comments: : New BKA Partial Dependence, assistance required for: : Ambulation / Mobility Equipment needed for post hospitalization: : Wheelchair Is there a likelihood that the patient will require additional services to return to the preadmission environment? : Yes Living Arrangements: : Home with Spouse/Significant Other Baseline cognitive status: : *Oriented to person, place, situation, time and present Results of this evaluation have been discussed with: : Children Results of this evaluation have been discussed with: : Patient Patient with capacity for self-care or can be cared for in same environment as prior to hospitalization? : No Physical environment modification needed / anticipated for discharge: : Yes Preadmission facility can/cannot provide post hospital level of care needs: : Cannot - at higher level of care than preadmission Planned post hospital services available for patient? : Yes Pharmacy name(s): : [facility] in [place] Does Patient have transportation to get home and to follow-up medical appointments when discharged from the hospital? : Yes Would patient like to participate in any Care Coordination programs (if applicable): : Not applicable Does the patient have electricity at home? : Yes Does the patient have running water in their house? : Yes Equipment in use: : Walker - Rollator Equipment agency name and contact information: : Wants to use [employer] for wheelchair Mental health screen: : No mental health history Psychosocial status: : Adult with physical limitations Resources / Services in place: : Dialysis - facility hemodialysis - Resources / Services in place: : Home health Contact information for resources in use: : [facility] [place] [facility] [place] MWF at 1100 DCP Re-evaluation QUESTION: ANSWER Would patient like to participate in any Care Coordination programs (if applicable): : Not applicable PATIENT: MARY QUINTERO ENCOUNTER: [id number] MEDICAL RECORD#: [id number] ADMISSION DATE: 07/03/2020 DISCHARGE DATE: ATTENDING MD: SARATH DELATORRE : AGE: 64 MARITAL STATUS: M DC PLAN ID: [id number] FACILITY: [facility] PRINTED ON: 07/07/20 13:06 CT All edits/amendments must be made on the electronic document DICTATION DATE: 07/07/20 1306 TIRE ASSEMBLER: LEI 07/07/20 1306 RPT#: [id number] DC DATE: STATUS: ADM IN [facility] [address] [place] [address] END OF REPORT
--- NOTE | 2020-07-07 13:22 | NUR ---
Nutrition Reassessment/Follow-up: POD 3 L BKA. HD today. Good/fair PO intake reported. Nepro TID per renal. Some nausea reported. Diet: Renal ADA, Nepro TID PO intake: 50-100% No new wt; last wt: 157.63# (07/04) Last BM: 07/07 Labs noted: K+ 4.4, Glu 214, Alb 2.1 Meds noted: Novolin, Humulin, Renagel, Pepcid, Zofran -Need new wt (s/p amputation) to update nutrition needs. -Encourage PO intake and honor food preferences within diet restrictions. -RD will follow up within 3-4 days if pt still admitted.
--- NOTE | 2020-07-07 15:35 | NUR ---
PT ARRIVED BACK FROM DIALYSIS AT THIS TIME. PT RR EVEN NON LABORED, PT GIVEN MEDS PER EMAR. NO FURTHER NEEDS VOICED. CLWR, DAUGHTER AT BEDSIDE.
--- NOTE | 2020-07-07 19:45 | NUR ---
REPORT RECEIVED, PT A&O, FAMILY AT BEDSIDE. NO S/S OF DISTRESS OBSERVED. RR EVEN AND UNLABORED. BED LOCKED AND LOWERED, CL IN REACH. ASSESSMENT COMPLETED AT THIS TIME. WILL CONT POC.
[2020-07-07 21:59] VITALS: BP 130/48
[2020-07-08 01:20] VITALS: BP 173/48
[2020-07-08 05:20] VITALS: BP 182/52
[2020-07-08 05:57] LABS: BASOPHILS 0.3 % (0-2); EOSINOPHILS 1.9 % (0-7); HEMATOCRIT 30.6 % (36.0-48.0); HEMOGLOBIN 9.8 g/dL (12-16); IMMATURE GRANULOCYTES 0.6 % (0-5); LYMPHOCYTE ABS# 0.95 10x3/uL (1.18-3.74); LYMPHOCYTES 10.1 % (15-50); MCV 90.5 fL (80.0-100.0); MEAN PLATELET VOLUME 10.7 fL (7.4-10.4); MONOCYTES 8.5 % (2-11); NEUTROPHILS 78.6 % (40-80); RBC 3.38 10x6/uL (4.00-5.40); RDW 13.9 % (11.5-14.5); WBC 9.4 10x3/uL (4.8-10.8)
[2020-07-08 06:07] LABS: PLATELET COUNT 260 10x3/uL (130-400)
--- NOTE | 2020-07-08 06:11 | NUR ---
DRESSING CHANGED PER MD ORDERS. ADMINISTERED MORPHINE 1 HR BEFORE DRESSING CHANGE. PT TOLERATED WELL WITHOUT PAIN. PTS PAIN LEVEL 0/10. WILL CONT POC.
[2020-07-08 06:24] LABS: ALBUMIN 2.2 g/dL (3.4-5.0); BILIRUBIN - TOTAL 0.34 mg/dL (0.2-1.3); CALCIUM 8.7 mg/dL (8.5-10.1); CARBON DIOXIDE 30.1 mmol/L (21.0-32.0); CREATININE - SERUM 5.5 mg/dL (0.6-1.3); POTASSIUM - SERUM 4.1 mmol/L (3.5-5.1); PROTEIN - SERUM 6.9 g/dL (6.4-8.2); VANCOMYCIN - RANDOM 23.1 ug/mL (10.0-20.0)
[2020-07-08 08:00] VITALS: BP 164/54
--- NOTE | 2020-07-08 08:28 | NUR ---
AM MEDS GIVEN. PT SITTING UP IN BED, RR EVEN NON LABORED. O2 IN PLACE. PT AWAKE AND ALERT, NO NEEDS VOICED. CLWR.
--- NOTE | 2020-07-08 08:44 | MORECARE ---
CASE MANAGEMENT DISCHARGE SUMMARY PATIENT: MARY QUINTERO UNIT: [id number] ADM DATE: 07/03/20 AGE: 64 : 53 SEX: F ROOM/BED: D.6215 AUTHOR: SHYANN,DOC PHYSICIAN: REFERRING PHYSICIAN: SARATH RICHTER DO DATE OF SERVICE: 07/08/20 Case Management Discharge Planning Summary COMMENTS ENTERED DATE: 07/07/20 12:52 CT COMMENT TYPE: Discharge Planning REVIEWER: Mattie Garcia DAUGHTER CALLED AND WOULD LIKE REFERRAL FAXED TO [facility]. I FAXED REFERRAL AND NOTIFIED DARIUSZ. I SPOKE WITH [employer] AND THEY WILL DELIVER WHEELCHAIR WHEN DISCHARGED FROM [facility]. ENTERED DATE: 07/06/20 13:33 CT COMMENT TYPE: Discharge Planning REVIEWER: Mattie Garcia CM met with patient and daughter to discuss discharge planning/needs. Daughter states she lives with her spouse. States she has steps to enter the home, so she is going to get a ramp built while patient is in rehab. She will need a wheelchair and they request that I use [employer]. I will send chart notes and order and inform them that her plan is rehab prior to home. I discussed availability of rehab vs SNF. They would like to go to a facility in [place], either [facility] or [facility]. I gave the list to daughter and she will call in am and "check out" the facilities and give me her choice in am. States she goes to [facility] in [place] MWF at 1100, drives her. After rehab she plans on staying with her daughter in [place], but will still transport to dialysis. Her PCP is [facility] in [place], but hasn't seen her in a while, typically sees Dr. Soares or Dr. Kellogg. She is current with [facility] in [place], states they come on Tuesday and for nursing and physical therapy. CM will continue to follow and assist with discharge planning/needs. DCP REVIEW SUMMARY ANTICIPATED D/C DATE: EXPECTED LOS : CASE STATUS: DCP Initiated INITIAL REVIEW: 07/06/2020 INITIAL REVIEWER: Mattie Garcia FINAL DISCHARGE DISPOSITION: : FINAL REVIEWER: FINAL REVIEW DATE: DCP Focus Questions & Answers DCP Screen QUESTION: ANSWER High Risk Factors: : Polypharmacy (greater than 10 meds) DCP Evaluation QUESTION: ANSWER Patient's ability to cope with chronic illness : b. Minimal (2 - 3 ED visits in 6 mos., limited financial resources, occasionally misses appts.) Patient gives permission to discuss discharge plans with: (name, relationship and number) : Aniya Quintero [facility] - [phone] Patient's current cognitive status: : *Oriented to person, place, situation, time and present Family / Caregiver's ability to cope with chronic illness: : a. Adequate (ability to meet patient's medical needs, ensures patient attends medical appts.) Patient and/or caregiver agree upon recommended discharge plan? : Yes Physical Status: : Compromised skin integrity Physical Status: : Mobility impaired Physical Status: : Partial care dependence Family / Caregiver's ability to cope with chronic illness: : a. Adequate (ability to meet patient's medical needs, ensures patient attends medical appts.) Functional screen assessment: : New onset in difficulty in gait, balance, or transfer difficulties Does the patient have the ability to pay for or attain post discharge needs / services? 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 : Yes Equipment needed for post hospitalization: : Wheelchair Baseline cognitive status: : *Oriented to person, place, situation, time and present Patient with capacity for self-care or can be cared for in same environment as prior to hospitalization? : No Results of this evaluation have been discussed with: : Children Results of this evaluation have been discussed with: : Patient Preadmission facility can/cannot provide post hospital level of care needs: : Cannot - at higher level of care than preadmission Physical environment modification needed / anticipated for discharge: : Yes Pharmacy name(s): : [facility] in [place] Planned post hospital services available for patient? : Yes Does Patient have transportation to get home and to follow-up medical appointments when discharged from the hospital? : Yes Would patient like to participate in any Care Coordination programs (if applicable): : Not applicable Does the patient have electricity at home? : Yes Does the patient have running water in their house? : Yes Equipment in use: : Walker - Rollator Equipment agency name and contact information: : Wants to use [employer] for wheelchair Mental health screen: : No mental health history Psychosocial status: : Adult with physical limitations Resources / Services in place: : Dialysis - facility hemodialysis - Resources / Services in place: : Home health Contact information for resources in use: : [facility] [place] [facility] [place] M[facility] at [facility] DCP Re-evaluation QUESTION: ANSWER Would patient like to participate in any Care Coordination programs (if applicable): : Not applicable PATIENT: MARY QUINTERO ENCOUNTER: [id number] MEDICAL RECORD#: [id number] ADMISSION DATE: 07/03/2020 DISCHARGE DATE: ATTENDING MD: SARATH DELATORRE : AGE: 64 MARITAL STATUS: M DC PLAN ID: [id number] FACILITY: [facility] PRINTED ON: 07/08/20 8:44 CT All edits/amendments must be made on the electronic document DICTATION DATE: 07/08/20843 GLOST KILN OPERATOR: LEI 07/08/20843 RPT#: [id number] DC DATE: STATUS: ADM IN [facility] [address] [place] [address] END OF REPORT
--- NOTE | 2020-07-08 10:30 | NUR ---
PT SAT ON SIDE OF BED WITH ASSISTANCE FROM PHYSICAL THERAPY, TOLERATED WELL. PT FAMILY AT BEDISDE. NO NEEDS VOICED. CLWR.
[2020-07-08 11:00] VITALS: BP 140/50
--- NOTE | 2020-07-08 12:11 | NUR ---
PT ASSISTED TO LIE IN BED, RR EVEN NON LABORED. LUNCH TRAY GIVEN. NO FURTHER NEEDS VOICED, FAMILY AT BEDSIDE. CLWR.
--- NOTE | 2020-07-08 14:13 | NUR ---
SPOKE WITH PT AND FAMILY MEMBER REGARDING POSSIBILITY OF BEING D/C TO REHAB THIS AFTERNOON. PT AND FAMILY STATES UNDERSTANDING. PRN ZOFRAN GIVEN D/T NAUSEA/EMESIS. NO FURTHER NEEDS VOICED, PT STATES SHE DOES NOT WANT TO TAKE HER SCHEDULED MEDS AT THIS TIME D/T NAUSEA. CLWR.
[2020-07-08] MEDS ORDERED: ACETAMINOPHEN325 MG PO (14:37)
[2020-07-08] MEDS ORDERED: GABAPENTIN100 MG PO (14:38)
[2020-07-08] MEDS ORDERED: MIRALAX17 GM PO (14:39)
[2020-07-08] MEDS ORDERED: HUMULIN R100 UNIT/1 SC (14:39)
[2020-07-08] MEDS ORDERED: IBUPROFEN200 MG PO (14:39)
[2020-07-08] MEDS ORDERED: PEPCID PO (14:39)
[2020-07-08] MEDS ORDERED: TYLENOL W/CODEI1 TAB PO (14:41)
--- NOTE | 2020-07-08 14:55 | NUR ---
OT NOTE: PT COMPLETED SIDE ROLLING WITH MOD A. PT REQUIRED TOTAL A FOR LB HYGIENE. PT COMPLETED OLAMIDE/DOFF BRIEFS WITH TOTAL A. 4-785 TONY AMAYA COTA
--- NOTE | 2020-07-08 15:30 | NUR ---
SPOKE WITH PT DAUGHTER ON PT CELL PHONE. SHE SPOKE IN AGGRAVATION STATING SHE DID NOT BELIEVE HER MOTHER WAS READY FOR D/C, SHE FELT IF HER MOTHER WAS BEING "RUSHED OUT THE DOOR,", AND SHE HAD NOT SPOKE WITH ANYONE REGARDING HER D/C PLAN. NOTIFIED LIZ KUMAR, CALLED ASHA KUMAR IN CASE MGMT WHO CALLED PT DAUGHTER AT THIS TIME.
--- NOTE | 2020-07-08 16:06 | NUR ---
PT WILL STAY TONIGHT DAUGHTER TOURS THE FACILITY. SOFIE TO CALL AND SPEAK WITH DAUGHTER TOMORROW FOR UPDATE PER CASE MGMT. PT AWARE AND DENIES ANY QUESTIONS. CLWR.
--- NOTE | 2020-07-08 16:23 | NUR ---
PRN PAIN MEDICATION GIVEN WITH SPRITE, CRACKERS AND VANILLA PUDDING. FAMILY AT BEDSIDE, CLWR.
[2020-07-08 16:39] VITALS: BP 133/46
--- NOTE | 2020-07-08 18:37 | MORECARE ---
CASE MANAGEMENT DISCHARGE SUMMARY PATIENT: MARY QUINTERO UNIT: [id number] ADM DATE: 07/03/20 AGE: 64 : 53 SEX: F ROOM/BED: D.1790 AUTHOR: SHYANN,DOC PHYSICIAN: REFERRING PHYSICIAN: SARATH RICHTER DO DATE OF SERVICE: 07/08/20 Case Management Discharge Planning Summary COMMENTS ENTERED DATE: 07/08/20 17:57 CT COMMENT TYPE: Discharge Planning REVIEWER: Ericka Dailey CM spoke with Kae at [facility] and they are ready to accept patient when discharged. CHRISTIANA notified [facility] that they can accept patient. Maddison stated that we need to check with Nephrology to see if they agree to discharge. Dr. Soares agreed to d/c. placed discharge order. Kae called and stated that transportation will be here at 3:30 pm for pickup. Patient's daughter Aniya called stated that she had given permission to send records but she was wanting to see facility first. She stated that she was going today after work to see. CM explained that the patient has discharge orders and that facility will be here at 3:30 to pickup. Aniya stated that she was alright with patient discharging and she would meet the patient at the facility. CHRISTIANA spoke with Kae and Jose A at facility will call daughter and speak with her. CHRISTIANA called daughter Aniya back and told her that Jose A from facility will be calling to arrange for her to see facility this afternoon. CHRISTIANA received a call back from Kae that Jose A and Aniya had spoken and everything had been worked out. CHRISTIANA was called to patient's room within 3 mins of that call. Patient states that her daughter hasn't spoken to anyone today and she doesn't want patient to discharge. CHRISTAINA spoke with Aniya on speaker in patient's room . Aniya states that she feels that patient is being discharged to soon and that she is on IV antibiotics still, her dressing was just changed today and the patients pain needs to be controlled better. Aniya requested to speak to someone besides CHRISTIANA. CHRISTIANA called Maddison and asked if she would call her. 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 Maddison called back and stated that patient will stay overnight and she will call daughter in am after she has visited facility [facility]. CM notified [facility] and placed a delay in chart. CM will continue to follow and assist as needed with discharge planning / needs. ENTERED DATE: 07/07/20 12:52 CT COMMENT TYPE: Discharge Planning REVIEWER: Mattie Garcia DAUGHTER CALLED AND WOULD LIKE REFERRAL FAXED TO [facility]. I FAXED REFERRAL AND NOTIFIED KAE. I SPOKE WITH [facility] AND THEY WILL DELIVER WHEELCHAIR WHEN DISCHARGED FROM [facility]. ENTERED DATE: 07/06/20 13:33 CT COMMENT TYPE: Discharge Planning REVIEWER: Mattie Garcia CM met with patient and daughter to discuss discharge planning/needs. Daughter states she lives with her spouse. States she has steps to enter the home, so she is going to get a ramp built while patient is in rehab. She will need a wheelchair and they request that I use [employer]. I will send chart notes and order and inform them that her plan is rehab prior to home. I discussed availability of rehab vs SNF. They would like to go to a facility in [place], either [facility] or [facility]. I gave the list to daughter and she will call in am and "check out" the facilities and give me her choice in am. States she goes to [facility] in [place] MW at 1100, drives her. After rehab she plans on staying with her daughter in [place], but will still transport to dialysis. Her PCP is [facility] in [place], but hasn't seen her in a while, typically sees Dr. Soares or Dr. Kellogg. She is current with [facility] in [place], states they come on Tuesday and for nursing and physical therapy. CM will continue to follow and assist with discharge planning/needs. DCP REVIEW SUMMARY ANTICIPATED D/C DATE: EXPECTED LOS : CASE STATUS: DCP Initiated INITIAL REVIEW: 07/06/2020 INITIAL REVIEWER: Mattie Garcia FINAL DISCHARGE DISPOSITION: : FINAL REVIEWER: FINAL REVIEW DATE: DCP Focus Questions & Answers DCP Screen QUESTION: ANSWER High Risk Factors: : Polypharmacy (greater than 10 meds) DCP Evaluation QUESTION: ANSWER Patient's ability to cope with chronic illness : b. Minimal (2 - 3 ED visits in 6 mos., limited financial resources, occasionally misses appts.) Patient gives permission to discuss discharge plans with: (name, relationship and number) : Aniya [facility]intero [facility] - [phone] Patient's current cognitive status: : *Oriented to person, place, situation, time and present Family / Caregiver's ability to cope with chronic illness: : a. Adequate (ability to meet patient's medical needs, ensures patient attends medical appts.) Patient and/or caregiver agree upon recommended discharge plan? : Yes Physical Status: : Compromised skin integrity Physical Status: : Mobility impaired Physical Status: : Partial care dependence Family / Caregiver's ability to cope with chronic illness: : a. Adequate (ability to meet patient's medical needs, ensures patient attends medical appts.) Functional screen assessment: : New onset in difficulty in gait, balance, or transfer difficulties Does the patient have the ability to pay for or attain post discharge needs / services? 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 : Yes Equipment needed for post hospitalization: : Wheelchair Baseline cognitive status: : *Oriented to person, place, situation, time and present Patient with capacity for self-care or can be cared for in same environment as prior to hospitalization? : No Results of this evaluation have been discussed with: : Children Results of this evaluation have been discussed with: : Patient Preadmission facility can/cannot provide post hospital level of care needs: : Cannot - at higher level of care than preadmission Physical environment modification needed / anticipated for discharge: : Yes Pharmacy name(s): : [facility] in [place] Planned post hospital services available for patient? : Yes Does Patient have transportation to get home and to follow-up medical appointments when discharged from the hospital? : Yes Would patient like to participate in any Care Coordination programs (if applicable): : Not applicable Does the patient have electricity at home? : Yes Does the patient have running water in their house? : Yes Equipment in use: : Walker - Rollator Equipment agency name and contact information: : Wants to use [employer] for wheelchair Mental health screen: : No mental health history Psychosocial status: : Adult with physical limitations Resources / Services in place: : Dialysis - facility hemodialysis - Resources / Services in place: : Home health Contact information for resources in use: : [facility] in [place] [facility] in [place] MWF at 1100 DCP Re-evaluation QUESTION: ANSWER Would patient like to participate in any Care Coordination programs (if applicable): : Not applicable PATIENT: MARY QUINTERO ENCOUNTER: [id number] MEDICAL RECORD#: [id number] ADMISSION DATE: 07/03/2020 DISCHARGE DATE: ATTENDING MD: SARATH DELATORRE : AGE: 64 MARITAL STATUS: M DC PLAN ID: [id number] FACILITY: [facility] PRINTED ON: 07/08/20 18:37 CT All edits/amendments must be made on the electronic document DICTATION DATE: 07/08/201836 BOOT LACE CUTTER MACHINE: LEI 07/08/201836 RPT#: [id number] DC DATE: STATUS: ADM IN [facility] [address] [place] [address] END OF REPORT
--- NOTE | 2020-07-08 19:55 | NUR ---
REPORT RECEIVED. PT A&O, UP IN BED WITH FRIEND AT BEDSIDE. NO S/S OF DISTRESS OBSERVED. RR EVEN AND UNLABORED ON RA. BED LOCKED AND LOWERED, CL IN REACH. ASSESSMENT COMPLETE. WILL CONT POC.
[2020-07-08 21:00] VITALS: BP 135/60
[2020-07-09 01:48] VITALS: BP 158/45
[2020-07-09 05:50] VITALS: BP 167/49
[2020-07-09 06:56] LABS: BASOPHILS 0.2 % (0-2); EOSINOPHILS 2.2 % (0-7); HEMATOCRIT 27.4 % (36.0-48.0); HEMOGLOBIN 8.6 g/dL (12-16); IMMATURE GRANULOCYTES 0.7 % (0-5); LYMPHOCYTE ABS# 0.92 10x3/uL (1.18-3.74); LYMPHOCYTES 10.2 % (15-50); MCH 28.7 pg (26.0-34.0); MCHC 31.4 g/dL (31.0-37.0); MCV 91.3 fL (80.0-100.0); MEAN PLATELET VOLUME 10.7 fL (7.4-10.4); MONOCYTES 6.8 % (2-11); NEUTROPHILS 79.9 % (40-80); PLATELET COUNT 230 10x3/uL (130-400); RDW 13.8 % (11.5-14.5)
[2020-07-09 07:23] LABS: ANION GAP 15.4 mmol/L (8-16); BILIRUBIN - TOTAL 0.31 mg/dL (0.2-1.3); CALCIUM 7.5 mg/dL (8.5-10.1); CARBON DIOXIDE 24.8 mmol/L (21.0-32.0); CREATININE - SERUM 6.4 mg/dL (0.6-1.3); POTASSIUM - SERUM 4.2 mmol/L (3.5-5.1); PROTEIN - SERUM 5.6 g/dL (6.4-8.2); VANCOMYCIN - RANDOM 17.9 ug/mL (10.0-20.0)
[2020-07-09 08:09] VITALS: BP 144/48
--- NOTE | 2020-07-09 08:26 | NUR ---
AM MEDS GIVEN WITH SLIDING SCALE WITH BREAKFAST TRAY. PT TO BE TAKEN TO DIALYSIS. AWAKE AND ALERT, NO NEEDS VOICED.
[2020-07-09] MEDS ORDERED: HYDROCODON-ACE1 EAC7 PO (08:34)
--- NOTE | 2020-07-09 10:26 | NUR ---
PT WILL BE D/C TO [facility] TODAY WHEN FINISHED WITH DIALYSIS. PT AND DAUGHTER AWARE AND AGREE TO PLAN OF CARE.
--- NOTE | 2020-07-09 11:31 | MORECARE ---
CASE MANAGEMENT DISCHARGE SUMMARY PATIENT: MARY QUINTERO UNIT: [id number] ADM DATE: 07/03/20 AGE: 64 : 53 SEX: F ROOM/BED: D.1840 AUTHOR: SHYANN,DOC PHYSICIAN: REFERRING PHYSICIAN: SARATH RICHTER DO DATE OF SERVICE: 07/09/20 Case Management Discharge Planning Summary COMMENTS ENTERED DATE: 07/09/20 11:21 CT COMMENT TYPE: Discharge Planning REVIEWER: Mattie Garcia CM called patient's daughter and she is in agreement to DC to [facility] today. I called Kae and DC clinical faxed. Patient is in dialysis at this time. She is discharging to a skilled bed. ENTERED DATE: 07/08/20 17:57 CT COMMENT TYPE: Discharge Planning REVIEWER: Ericka Dailey CM spoke with Kae at [facility] and they are ready to accept patient when discharged. CM notified [facility] that they can accept patient. Maddison stated that we need to check with Nephrology to see if they agree to discharge. Dr. Soares agreed to d/c. placed discharge order. Kae called and stated that transportation will be here at 3:30 pm for pickup. Patient's daughter Aniya called stated that she had given permission to send records but she was wanting to see facility first. She stated that she was going today after work to see. CM explained that the patient has discharge orders and that facility will be here at 3:30 to pickup. Aniya stated that she was alright with patient discharging and she would meet the patient at the facility. CM spoke with Kae and Jose A at [facility] will call daughter and speak with her. CM called daughter Aniya back and told her that Jose A from [facility] will be calling to arrange for her to see facility this afternoon. CM received a call back from Kae that Jose A and Aniya had spoken and everything had been worked out. CM was called to patient's room within 3 mins of that call. Patient states that her daughter hasn't spoken to anyone today and she doesn't want patient to discharge. CHRISTIANA spoke with Aniya on speaker in patient's room . Aniya states that she feels that patient is being discharged to soon and that she is on IV antibiotics still, her dressing was just changed today and the patients pain needs to be controlled better. Aniya requested to speak to someone besides CM. CM called Maddison and asked if she would call her. 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 Maddison called back and stated that patient will stay overnight and she will call daughter in am after she has visited facility [facility]. CM notified Kae and placed a delay in chart. CM will continue to follow and assist as needed with discharge planning / needs. ENTERED DATE: 07/07/20 12:52 CT COMMENT TYPE: Discharge Planning REVIEWER: Mattie Garcia DAUGHTER CALLED AND WOULD LIKE REFERRAL FAXED TO [facility]. I FAXED REFERRAL AND NOTIFIED KAE. I SPOKE WITH [facility] AND THEY WILL DELIVER WHEELCHAIR WHEN DISCHARGED FROM [facility]. ENTERED DATE: 07/06/20 13:33 CT COMMENT TYPE: Discharge Planning REVIEWER: Mattie Rosariojohn VILLEDA met with patient and daughter to discuss discharge planning/needs. Daughter states she lives with her spouse. States she has steps to enter the home, so she is going to get a ramp built while patient is in rehab. She will need a wheelchair and they request that I use [employer]. I will send chart notes and order and inform them that her plan is rehab prior to home. I discussed availability of rehab vs SNF. They would like to go to a facility in [place], either [facility] or [facility]. I gave the list to daughter and she will call in am and "check out" the facilities and give me her choice in am. States she goes to [facility] dialysis in [place] MWF at 1100, drives her. After rehab she plans on staying with her daughter in [place], but will still transport to dialysis. Her PCP is [facility] in [place], but hasn't seen her in a while, typically sees Dr. Soares or Dr. Kellogg. She is current with [facility] in [place], [facility] they come on Tuesday and for nursing and physical therapy. CM will continue to follow and assist with discharge planning/needs. DCP REVIEW SUMMARY ANTICIPATED D/C DATE: EXPECTED LOS : CASE STATUS: DCP Initiated INITIAL REVIEW: 07/06/2020 INITIAL REVIEWER: Mattie Garcia FINAL DISCHARGE DISPOSITION: : FINAL REVIEWER: FINAL REVIEW DATE: DCP Focus Questions & Answers DCP Screen QUESTION: ANSWER High Risk Factors: : Polypharmacy (greater than 10 meds) DCP Evaluation QUESTION: ANSWER Patient and/or caregiver agree upon recommended discharge plan? : Yes Family / Caregiver's ability to cope with chronic illness: : a. Adequate (ability to meet patient's medical needs, ensures patient attends medical appts.) Patient's current cognitive status: : *Oriented to person, place, situation, time and present Patient gives permission to discuss discharge plans with: (name, relationship and number) : Aniya Quintero - R - [phone] Patient's ability to cope with chronic illness : b. Minimal (2 - 3 ED visits in 6 mos., limited financial resources, occasionally misses appts.) Does the patient have the ability to pay for or attain post discharge needs / services? : Yes Functional screen assessment: : New onset in difficulty in gait, balance, or transfer difficulties Family / Caregiver's ability to cope with chronic illness: : a. Adequate (ability to meet patient's medical needs, ensures patient attends medical appts.) Physical Status: : Partial care dependence Physical Status: : Mobility impaired Physical Status: : Compromised skin integrity Equipment needed for post hospitalization: : Wheelchair Is there a likelihood that the patient will require additional services to return to the preadmission environment? 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 : No Baseline cognitive status: : *Oriented to person, place, situation, time and present Physical environment modification needed / anticipated for discharge: : Yes Preadmission facility can/cannot provide post hospital level of care needs: : Cannot - at higher level of care than preadmission Planned post hospital services available for patient? : Yes Pharmacy name(s): : [facility] in [place] Does Patient have transportation to get home and to follow-up medical appointments when discharged from the hospital? : Yes Would patient like to participate in any Care Coordination programs (if applicable): : Not applicable Does the patient have electricity at home? : Yes Does the patient have running water in their house? : Yes Equipment in use: : Walker - Rollator Equipment agency name and contact information: : Wants to use [employer] for wheelchair Mental health screen: : No mental health history Psychosocial status: : Adult with physical limitations Resources / Services in place: : Home health Resources / Services in place: : Dialysis - facility hemodialysis Contact information for resources in use: : [facility] in [place] [facility] in [place] MWF at 1100 DCP Re-evaluation QUESTION: ANSWER Would patient like to participate in any Care Coordination programs (if applicable): : Not applicable PATIENT: MARY QUINTERO ENCOUNTER: [id number] MEDICAL RECORD#: [id number] ADMISSION DATE: 07/03/2020 DISCHARGE DATE: ATTENDING MD: SARATH DELATORRE : AGE: 64 MARITAL STATUS: M DC PLAN ID: [id number] FACILITY: [facility] PRINTED ON: 07/09/20 11:31 CT All edits/amendments must be made on the electronic document DICTATION DATE: 07/09/20 113 HISTORY FACULTY MEMBER: LEI 07/09/20 1131 RPT#: [id number] DC DATE: STATUS: ADM IN [facility] [address] [place] [address] END OF REPORT
--- NOTE | 2020-07-09 12:38 | NUR ---
SPOKE WITH JILLIAN AT THIS TIME REGARDING VANC ORDER PLACED, PER JILLIAN PT WILL GET VANC 500MG AT HER NEXT DIALYSIS ON TUESDAY D/T PT COMPLETED WITH DIALYSIS AND BEING D/C TO [facility] TODAY.
--- NOTE | 2020-07-09 12:49 | NUR ---
REPORT CALLED TO FERMIN AT [facility] AT THIS TIME.
--- NOTE | 2020-07-09 12:55 | NUR ---
SPOKE WITH DAUGHTER JJ AT THIS TIME REGARDING D/C PLAN, DAUGHTER STATES UNDERSTANDING, NO QUESTIONS VOICED.
--- NOTE | 2020-07-09 14:16 | NUR ---
PT ASSISTED TO BSC WITH ASSISTANCE OF NURSE AND PHYSICAL THERAPY. PT TOLERATED ACTIVITY WELL. PT GIVEN WIPE DOWN BATH WHILE SITTING UP ON BSC. PT PLACED IN NEW GOWNS AND GATHERED BELONGINGS. PT SITTING ON SIDE OF BED, PRN PAIN MEDICATION GIVEN PRIOR TO D/C. PT DENIES ANY NEEDS. CLWR.
--- NOTE | 2020-07-09 14:36 | NUR ---
D/C INSTRUCTIONS REVIEWED WITH PT AT THIS TIME, PRESCRIPTION FOR PAIN MEDICATION IN [place] FOR [facility] STAFF. PT DENIES ANY QUESTIONS. NO NEEDS VOICED AT THIS TIME. CLWR.
--- NOTE | 2020-07-09 14:56 | NUR ---
PT WHEELED TO [facility]AN WITH BELONGINGS AT THIS TIME BY [facility] STAFF AND PLATE FURNACE OPERATOR. NO DISTRESS NOTED ON DEPARTURE.
--- NOTE | 2020-07-09 15:19 | MORECARE ---
CASE MANAGEMENT DISCHARGE SUMMARY PATIENT: MARY QUINTERO UNIT: [id number] ADM DATE: 07/03/20 AGE: 64 : 53 SEX: F ROOM/BED: D.3410 AUTHOR: SHYANN,DOC PHYSICIAN: REFERRING PHYSICIAN: SARATH RICHTER DO DATE OF SERVICE: 07/09/20 Case Management Discharge Planning Summary COMMENTS ENTERED DATE: 07/09/20 11:21 CT COMMENT TYPE: Discharge Planning REVIEWER: Mattie Garcia CM called patient's daughter and she is in agreement to DC to [facility] today. I called Kae and DC clinical faxed. Patient is in dialysis at this time. She is discharging to a skilled bed. ENTERED DATE: 07/08/20 17:57 CT COMMENT TYPE: Discharge Planning REVIEWER: Ericka Dailey CM spoke with Kae at [facility] and they are ready to accept patient when discharged. CM notified Maddison PETTIT that they can accept patient. Maddison stated that we need to check with Nephrology to see if they agree to discharge. Dr. Soares agreed to d/c. placed discharge order. Kae called and stated that transportation will be here at 3:30 pm for pickup. Patient's daughter Aniya called stated that she had given permission to send records but she was wanting to see facility first. She stated that she was going today after work to see. CM explained that the patient has discharge orders and that facility will be here at 3:30 to pickup. Aniya stated that she was alright with patient discharging and she would meet the patient at the facility. CM spoke with Kae and Jose A at [facility] will call daughter and speak with her. CM called daughter Aniya back and told her that Jose A from [facility] will be calling to arrange for her to see facility this afternoon. CM received a call back from Kae that Jose A and Aniya had spoken and everything had been worked out. CM was called to patient's room within 3 mins of that call. Patient states that her daughter hasn't spoken to anyone today and she doesn't want patient to discharge. CHRISTIANA spoke with Aniya on speaker in patient's room . Aniya states that she feels that patient is being discharged to soon and that she is on IV antibiotics still, her dressing was just changed today and the patients pain needs to be controlled better. Aniya requested to speak to someone besides CM. CM called Maddison and asked if she would call her. 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 Maddison called back and stated that patient will stay overnight and she will call daughter in am after she has visited facility [facility]. CM notified Kae and placed a delay in chart. CM will continue to follow and assist as needed with discharge planning / needs. ENTERED DATE: 07/07/20 12:52 CT COMMENT TYPE: Discharge Planning REVIEWER: Mattie Garcia DAUGHTER CALLED AND WOULD LIKE REFERRAL FAXED TO [facility]. I FAXED REFERRAL AND NOTIFIED KAE. I SPOKE WITH [employer] AND THEY WILL DELIVER WHEELCHAIR WHEN DISCHARGED FROM [facility]. ENTERED DATE: 07/06/20 13:33 CT COMMENT TYPE: Discharge Planning REVIEWER: Mattie Rosariojohn VILLEDA met with patient and daughter to discuss discharge planning/needs. Daughter states she lives with her spouse. States she has steps to enter the home, so she is going to get a ramp built while patient is in rehab. She will need a wheelchair and they request that I use [employer]. I will send chart notes and order and inform them that her plan is rehab prior to home. I discussed availability of rehab vs SNF. They would like to go to a facility in [place], either [place] or [facility]. I gave the list to daughter and she will call in am and "check out" the facilities and give me her choice in am. States she goes to [facility] dialysis in [place] MWF at 1100, drives her. After rehab she plans on staying with her daughter in [place], but will still transport to dialysis. Her PCP is [facility] in [place], but hasn't seen her in a while, typically sees Dr. Soares or Dr. Kellogg. She is current with [facility] in [place], [facility] they come on Tuesday and for nursing and physical therapy. CM will continue to follow and assist with discharge planning/needs. DCP REVIEW SUMMARY ANTICIPATED D/C DATE: EXPECTED LOS : CASE STATUS: DCP Initiated INITIAL REVIEW: 07/06/2020 INITIAL REVIEWER: Mattie Garcia FINAL DISCHARGE DISPOSITION: : FINAL REVIEWER: FINAL REVIEW DATE: DCP Focus Questions & Answers DCP Screen QUESTION: ANSWER High Risk Factors: : Polypharmacy (greater than 10 meds) DCP Evaluation QUESTION: ANSWER Patient and/or caregiver agree upon recommended discharge plan? : Yes Family / Caregiver's ability to cope with chronic illness: : a. Adequate (ability to meet patient's medical needs, ensures patient attends medical appts.) Patient's current cognitive status: : *Oriented to person, place, situation, time and present Patient gives permission to discuss discharge plans with: (name, relationship and number) : Aniya Quintero - R - [phone] Patient's ability to cope with chronic illness : b. Minimal (2 - 3 ED visits in 6 mos., limited financial resources, occasionally misses appts.) Does the patient have the ability to pay for or attain post discharge needs / services? : Yes Functional screen assessment: : New onset in difficulty in gait, balance, or transfer difficulties Family / Caregiver's ability to cope with chronic illness: : a. Adequate (ability to meet patient's medical needs, ensures patient attends medical appts.) Physical Status: : Partial care dependence Physical Status: : Mobility impaired Physical Status: : Compromised skin integrity Equipment needed for post hospitalization: : Wheelchair Is there a likelihood that the patient will require additional services to return to the preadmission environment? 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 : No Baseline cognitive status: : *Oriented to person, place, situation, time and present Physical environment modification needed / anticipated for discharge: : Yes Preadmission facility can/cannot provide post hospital level of care needs: : Cannot - at higher level of care than preadmission Planned post hospital services available for patient? : Yes Pharmacy name(s): : [facility] in [place] Does Patient have transportation to get home and to follow-up medical appointments when discharged from the hospital? : Yes Would patient like to participate in any Care Coordination programs (if applicable): : Not applicable Does the patient have electricity at home? : Yes Does the patient have running water in their house? : Yes Equipment in use: : Walker - Rollator Equipment agency name and contact information: : Wants to use [employer] for wheelchair Mental health screen: : No mental health history Psychosocial status: : Adult with physical limitations Resources / Services in place: : Home health Resources / Services in place: : Dialysis - facility hemodialysis Contact information for resources in use: : [facility] in [place] [facility] Dialysis in [place] MWF at 1100 DCP Re-evaluation QUESTION: ANSWER Would patient like to participate in any Care Coordination programs (if applicable): : Not applicable PATIENT: MARY QUINTERO ENCOUNTER: [id number] MEDICAL RECORD#: [id number] ADMISSION DATE: 07/03/2020 DISCHARGE DATE: 07/09/2020 ATTENDING MD: SARATH DELATORRE : AGE: 64 MARITAL STATUS: M DC PLAN ID: [id number] FACILITY: [facility] PRINTED ON: 07/09/20 15:19 CT All edits/amendments must be made on the electronic document DICTATION DATE: 07/09/20 151 GLOVE TAGGER: LEI 07/09/20 151 RPT#: [id number] DC DATE:07/09/20 STATUS: DIS IN [facility] [address] [place] [address] END OF REPORT
--- NOTE | 2020-07-09 15:47 | NUR ---
OT NOTE: PT COMPLETED BED TO BSC TSF WITH MAX A. PT COMPLETED LB HYGIENE WITH TOTAL A. PT REQUIRED MIN A FOR UB BATHING TASKS WHILE SEATED. PT REQUIRED TOTAL A TO OLAMIDE/DOFF SOCKS. PT REQUIRED MOD A FOR LB BATHING TASKS WHILE SEATED. 108-138 TONY AMAYA COTA
--- NOTE | 2020-07-09 20:22 | MORECARE ---
CASE MANAGEMENT DISCHARGE SUMMARY PATIENT: MARY QUINTERO UNIT: [id number] ADM DATE: 07/03/20 AGE: 64 : 53 SEX: F ROOM/BED: D.9180 AUTHOR: SHYANN,DOC PHYSICIAN: REFERRING PHYSICIAN: SARATH RICHTER DO DATE OF SERVICE: 07/09/20 Case Management Discharge Planning Summary COMMENTS ENTERED DATE: 07/09/20 11:21 CT COMMENT TYPE: Discharge Planning REVIEWER: Mattie Garcia CM called patient's daughter and she is in agreement to DC to [facility] today. I called Kae and DC clinical faxed. Patient is in dialysis at this time. She is discharging to a skilled bed. ENTERED DATE: 07/08/20 17:57 CT COMMENT TYPE: Discharge Planning REVIEWER: Ericka Dailey CM spoke with Kae at [facility] and they are ready to accept patient when discharged. CM notified Maddison PETTIT that they can accept patient. Maddison stated that we need to check with Nephrology to see if they agree to discharge. Dr. Soares agreed to d/c. placed discharge order. Kae called and stated that transportation will be here at 3:30 pm for pickup. Patient's daughter Aniya called stated that she had given permission to send records but she was wanting to see facility first. She stated that she was going today after work to see. CM explained that the patient has discharge orders and that facility will be here at 3:30 to pickup. Aniya stated that she was alright with patient discharging and she would meet the patient at the facility. CM spoke with Kae and Jose A at [facility] will call daughter and speak with her. CM called daughter Aniya back and told her that Jose A from [facility] will be calling to arrange for her to see facility this afternoon. CM received a call back from Kae that Jose A and Aniya had spoken and everything had been worked out. CM was called to patient's room within 3 mins of that call. Patient states that her daughter hasn't spoken to anyone today and she doesn't want patient to discharge. CHRISTIANA spoke with Aniya on speaker in patient's room . Aniya states that she feels that patient is being discharged to soon and that she is on IV antibiotics still, her dressing was just changed today and the patients pain needs to be controlled better. Aniya requested to speak to someone besides CM. CM called Maddison and asked if she would call her. 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 Maddison called back and stated that patient will stay overnight and she will call daughter in am after she has visited facility [facility]. CM notified Kae and placed a delay in chart. CM will continue to follow and assist as needed with discharge planning / needs. ENTERED DATE: 07/07/20 12:52 CT COMMENT TYPE: Discharge Planning REVIEWER: Mattie Garcia DAUGHTER CALLED AND WOULD LIKE REFERRAL FAXED TO [facility]. I FAXED REFERRAL AND NOTIFIED KAE. I SPOKE WITH [employer] AND THEY WILL DELIVER WHEELCHAIR WHEN DISCHARGED FROM [facility]. ENTERED DATE: 07/06/20 13:33 CT COMMENT TYPE: Discharge Planning REVIEWER: Mattie Rosariojohn VILLEDA met with patient and daughter to discuss discharge planning/needs. Daughter states she lives with her spouse. States she has steps to enter the home, so she is going to get a ramp built while patient is in rehab. She will need a wheelchair and they request that I use [employer]. I will send chart notes and order and inform them that her plan is rehab prior to home. I discussed availability of rehab vs SNF. They would like to go to a facility in [place], either [facility] or [facility]. I gave the list to daughter and she will call in am and "check out" the facilities and give me her choice in am. States she goes to [facility] dialysis in [place] MWF at 1100, drives her. After rehab she plans on staying with her daughter in [place], but will still transport to dialysis. Her PCP is [facility] in [place], but hasn't seen her in a while, typically sees Dr. Soares or Dr. Kellogg. She is current with [facility] in [place], [facility] they come on Tuesday and for nursing and physical therapy. CM will continue to follow and assist with discharge planning/needs. DCP REVIEW SUMMARY ANTICIPATED D/C DATE: EXPECTED LOS : CASE STATUS: DCP Initiated INITIAL REVIEW: 07/06/2020 INITIAL REVIEWER: Mattie Garcia FINAL DISCHARGE DISPOSITION: : FINAL REVIEWER: FINAL REVIEW DATE: DCP Focus Questions & Answers DCP Screen QUESTION: ANSWER High Risk Factors: : Polypharmacy (greater than 10 meds) DCP Evaluation QUESTION: ANSWER Patient and/or caregiver agree upon recommended discharge plan? : Yes Family / Caregiver's ability to cope with chronic illness: : a. Adequate (ability to meet patient's medical needs, ensures patient attends medical appts.) Patient's current cognitive status: : *Oriented to person, place, situation, time and present Patient gives permission to discuss discharge plans with: (name, relationship and number) : Aniay Quintero - R - [phone] Patient's ability to cope with chronic illness : b. Minimal (2 - 3 ED visits in 6 mos., limited financial resources, occasionally misses appts.) Does the patient have the ability to pay for or attain post discharge needs / services? : Yes Functional screen assessment: : New onset in difficulty in gait, balance, or transfer difficulties Family / Caregiver's ability to cope with chronic illness: : a. Adequate (ability to meet patient's medical needs, ensures patient attends medical appts.) Physical Status: : Partial care dependence Physical Status: : Mobility impaired Physical Status: : Compromised skin integrity Equipment needed for post hospitalization: : Wheelchair Is there a likelihood that the patient will require additional services to return to the preadmission environment? 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 : No Baseline cognitive status: : *Oriented to person, place, situation, time and present Physical environment modification needed / anticipated for discharge: : Yes Preadmission facility can/cannot provide post hospital level of care needs: : Cannot - at higher level of care than preadmission Planned post hospital services available for patient? : Yes Pharmacy name(s): : [facility] in [place] Does Patient have transportation to get home and to follow-up medical appointments when discharged from the hospital? : Yes Would patient like to participate in any Care Coordination programs (if applicable): : Not applicable Does the patient have electricity at home? : Yes Does the patient have running water in their house? : Yes Equipment in use: : Walker - Rollator Equipment agency name and contact information: : Wants to use [employer] for wheelchair Mental health screen: : No mental health history Psychosocial status: : Adult with physical limitations Resources / Services in place: : Home health Resources / Services in place: : Dialysis - facility hemodialysis Contact information for resources in use: : [facility] in [place] [employer] Dialysis in [place] MWF at 1100 DCP Re-evaluation QUESTION: ANSWER Would patient like to participate in any Care Coordination programs (if applicable): : Not applicable PATIENT: MARY QUINTERO ENCOUNTER: [id number] MEDICAL RECORD#: [id number] ADMISSION DATE: 07/03/2020 DISCHARGE DATE: 07/09/2020 ATTENDING MD: SARATH DELATORRE : AGE: 64 MARITAL STATUS: M DC PLAN ID: [id number] FACILITY: [facility] PRINTED ON: 07/09/20 20:22 CT All edits/amendments must be made on the electronic document DICTATION DATE: 07/09/202021 SHIP LABORER: LEI 07/09/202021 RPT#: [id number] DC DATE:07/09/20 STATUS: DIS IN [facility] [address] [place] [address] END OF REPORT
== END 2020-07-09 15:00 | DRG 617 ==
LOC: D.ER 10:37 → D.M2 12:53
PROVIDERS: Emergency Medicine; Family Medicine; Orthopaedic Surgery; ADMIT Family Medicine; ATTEND Family Medicine
PROC: 0Y6J0Z2 Detachment at Left Lower Leg, Mid, Open Approach (ICD-10-PCS; principal; 2020-07-04 14:00)
DX: E11.69 Type 2 diabetes mellitus with other specified complication (principal); M86.172 Other acute osteomyelitis, left ankle and foot; E11.52 Type 2 diabetes mellitus with diabetic peripheral angiopathy with gangrene; I96 Gangrene, not elsewhere classified; I12.0 Hypertensive chronic kidney disease with stage 5 chronic kidney disease or end stage renal disease; N18.6 End stage renal disease; E11.40 Type 2 diabetes mellitus with diabetic neuropathy, unspecified; E11.22 Type 2 diabetes mellitus with diabetic chronic kidney disease; E11.65 Type 2 diabetes mellitus with hyperglycemia; D63.1 Anemia in chronic kidney disease

== ENCOUNTER 2020-08-18 16:40 | Inpatient (IN) | payer MEDICARE ==
[~2020-08-18] VITALS: Ht 165.1 cm; Wt 60.5 kg
[~2020-08-18 16:40] MED LIST changes: +ACETAMINOPHEN325 MG PO; +CATAPRES TTS-20.2 MG TD; +COREG12.5 MG PO; +HUMULIN R100 UNIT/1 SC; +HYDRALAZINE HCL50 MG PO; +HYDROCODON-ACE1 EAC7 PO; +HYDROXYCHLOROQ200 MG PO; +IBUPROFEN200 MG PO; +MIRALAX17 GM PO; +PEPCID PO; +PROBIOTIC BLEN1 EACH PO; +RENA-VITE TABL0.8 MG PO; +RENVELA800 MG PO; +TYLENOL W/CODEI1 TAB PO
--- NOTE | 2020-08-18 18:06 | NUR ---
CALLLED RENAL CONSULT TO WILVER DÍAZ, PER ORDERS FROM ADMIT, ABX PER RENAL RECOMMENDATIONS, START ZOSYN 2.25 Q8, CONTINUE WITH PLAN OF CARE
[2020-08-18 18:22] LABS: BASOPHILS 0.3 % (0-2); EOSINOPHILS 3.7 % (0-7); HEMATOCRIT 32.6 % (36.0-48.0); HEMOGLOBIN 10.6 g/dL (12-16); MCH 29.2 pg (26.0-34.0); MCHC 32.4 g/dL (31.0-37.0); MCV 89.9 fL (80.0-100.0); MEAN PLATELET VOLUME 8.7 fL (7.4-10.4); MONOCYTES 7.7 % (2-11); NEUTROPHILS 78.3 % (40-80); PLATELET COUNT 194 10x3/uL (130-400); RBC 3.63 10x6/uL (4.00-5.40); RDW 15.3 % (11.5-14.5); WBC 7.4 10x3/uL (4.8-10.8)
[2020-08-18] MEDS ORDERED: COREG12.5 MG PO (18:25)
[2020-08-18 18:33] VITALS: BP 168/58; BMI 22.1
[2020-08-18 18:35] LABS: ANION GAP 12.4 mmol/L (8-16); CALCIUM 8.5 mg/dL (8.5-10.1); CARBON DIOXIDE 30.2 mmol/L (21.0-32.0); CREATININE - SERUM 4.5 mg/dL (0.6-1.3); POTASSIUM - SERUM 3.6 mmol/L (3.5-5.1)
--- NOTE | 2020-08-18 19:00 | NUR ---
BEDSIDE REPORT RECEIVED AND CARE OF PT ASSUMED. PT LYING IN LOW OCAMPO'S POSITION VISITING WITH DAUGHTER. IV TO LEFT HAND PATENT WITH NS INFUSING AT KVO. LEFT BKA WITH STUMP WRAPPED. LEFT ARM CONTRACTED. FISTULA ON RIGHT FA...RESERVE RIGHT SIGNAGE ON DOOR AND ABOVE BED. WILL MONITOR FOR NEEDS.
[2020-08-18 19:34] VITALS: BP 101/56
--- NOTE | 2020-08-18 19:53 | NUR ---
CONSENTS FOR AM PROCEDURE SIGNED BY DAUGHTER IN PATIENTS PRESENCE.
--- NOTE | 2020-08-18 21:50 | NUR ---
RECEIVED ORDER FOR [employer] FOR PT COMPLAINTS OF GAS PAIN. FIRST ORDER GIVEN.
--- NOTE | 2020-08-18 22:05 | NUR ---
EKG PERFORMED AND PLACED IN CHART.
--- NOTE | 2020-08-19 03:01 | NUR ---
ASSISTED PT UP TO BSC TO HAVE VERY LARGE BM. POSITIONED BACK IN BED. GAVE NORCO PO PER REQUEST FOR PAIN. WILL CONTINUE TO MONITOR FOR NEEDS.
--- NOTE | 2020-08-19 05:46 | NUR ---
HIBACLENS BATH PERFORMED AND ALL LINENS AND GOWN CHANGED.
[2020-08-19 08:56] VITALS: BP 170/67
[2020-08-19 12:38] VITALS: BP 159/60
[2020-08-19 13:02] VITALS: Ht 165.1 cm; Wt 60.5 kg
[2020-08-19 16:11] VITALS: BP 166/75
--- NOTE | 2020-08-19 16:11 | NUR ---
RETURN BACK TO FLOOR AT THIS TIME FROM SURGERY SUITE WITH WOUND VAC IN PLACE TO LEFT STUMP. NO C/O NOTED OR VOICED. C/L AND FAMILY AT BEDSIDE.
--- NOTE | 2020-08-19 17:20 | NUR ---
I have reviewed this patient and I concur with the Shift Assessment completed by the Licensed Practical Nurse today this shift.
--- NOTE | 2020-08-19 17:49 | NUR ---
REC'D IN BED AWAKE AND ALERT. RESP EVEN AND UNLABORED WITH NO DISTRESS NOTED. CAN EXPRESS NEEDS AND WANTS. NO C/O NOTED OR VOICED. ASSESSMENT COMPLETED. C/L IN REACH AT BEDSIDE. C/L IN REACH
[2020-08-19 19:58] VITALS: BP 126/44
--- NOTE | 2020-08-19 20:00 | NUR ---
PT SITTING UP IN BED WITHOUT DISTRESS, AOX4. IV LEFT HAND INFUSING NS @ KVO. LEFT STUMP DRESSING CDI, WOUND VAC INTACT. PT DENIES NEEDS AT THIS TIME. CL IN REACH
[2020-08-20 00:54] VITALS: BP 155/45
[2020-08-20 04:00] VITALS: BP 138/52
--- NOTE | 2020-08-20 06:00 | OP ---
PATIENT NAME: MARY QUINTERO MEDICAL RECORD: [id number] :51 LOCATION:D.MS [id number] ADMISSION DATE:08/18/20 SURGEON: ANASTASIIA FRANCIS DO DATE OF OPERATION: 08/19/2020 PROCEDURE PERFORMED: Left below-knee amputation stump incision, debridement and Kerecis application and wound VAC application. PREOPERATIVE DIAGNOSIS: Left below-knee amputation stump dehiscence. POSTOPERATIVE DIAGNOSIS: Left below-knee amputation stump dehiscence. INDICATIONS: Ms. Quintero is a 64-year-old female who had a left below-knee amputation I believe about a month ago, presented to clinic with a large eschar over the incision site and the medial side had dehisced somewhat that had a large eschar. We admitted her yesterday for anticipation of surgery today. She is aware of the risks of this including infection, bleeding, damage to nerves and vessels, need for further surgery, continued pain, need for further amputation and close followup and she signed the consent. SURGEON: Anastasiia Francis DO. DESCRIPTION OF PROCEDURE: The patient was taken to the operative suite, laid in supine position, given general anesthetic and LMA was placed. Left lower extremity was prepped and draped in sterile fashion. A timeout was performed and everyone was in agreement with correct side, site, patient and procedure. I then began by making an excisional debridement of the eschar, debriding down to the level of the fascia over the medial side and the lateral side, removing eschar, excising it and then get good bleeding edges of the wound. Once I did that and got good bleeding edges, also bleeding of the granulation tissue at the stump site, I placed a Kerecis patch 7 x 10 and cut it to shape to fit the site. I then sewed it in with 4-0 Monocryl in a running stitch and then placed a wound VAC on it. She was then awakened, put in a knee immobilizer and taken to recovery in stable condition. BLOOD LOSS: Minimal. COMPLICATION: None. TRANSINT:[id number] Voice Confirmation ID: [id number] DOCUMENT ID: [id number] ANASTASIIA FRANCIS DO at 0600 CC: [id number] DICTATION DATE: 08/19/20 1536 COMPUTER ASSISTANT: 08/20/[address] [facility] [address] [place] [id number]
[2020-08-20 06:16] LABS: BASOPHILS 0.4 % (0-2); EOSINOPHILS 3.6 % (0-7); HEMATOCRIT 28.2 % (36.0-48.0); HEMOGLOBIN 9.3 g/dL (12-16); LYMPHOCYTES 9.8 % (15-50); MCH 29.9 pg (26.0-34.0); MCV 90.5 fL (80.0-100.0); MEAN PLATELET VOLUME 8.7 fL (7.4-10.4); MONOCYTES 8.8 % (2-11); NEUTROPHILS 77.4 % (40-80); PLATELET COUNT 159 10x3/uL (130-400); RBC 3.12 10x6/uL (4.00-5.40); WBC 8.5 10x3/uL (4.8-10.8)
[2020-08-20 06:42] LABS: ANION GAP 15.2 mmol/L (8-16); CALCIUM 8.5 mg/dL (8.5-10.1); CARBON DIOXIDE 27.1 mmol/L (21.0-32.0); CREATININE - SERUM 6.9 mg/dL (0.6-1.3); POTASSIUM - SERUM 4.3 mmol/L (3.5-5.1); VANCOMYCIN - RANDOM 19.2 ug/mL (10.0-20.0)
--- NOTE | 2020-08-20 08:00 | NUR ---
REC'D IN BED AWAKE AND ALERT. RESP EVEN AND UNLABORED WITH NO DISTRESS NOTED. CAN EXPRESS NEEDS AND WANTS. NO C/O NOTED OR VOICED. ASSESSMENT COMPLETED. C/L IN REACH.
--- NOTE | 2020-08-20 08:38 | MORECARE ---
CASE MANAGEMENT DISCHARGE SUMMARY PATIENT: MARY QUINTERO UNIT: [id number] ADM DATE: 08/18/20 AGE: 64 : 53 SEX: F ROOM/BED: [facility] AUTHOR: CEDRICK BOOTHE PHYSICIAN: REFERRING PHYSICIAN: ANASTASIIA FRANCIS DO DATE OF SERVICE: 08/20/20 Case Management Discharge Planning Summary DCP REVIEW SUMMARY ANTICIPATED D/C DATE: EXPECTED LOS : CASE STATUS: DCP Initiated INITIAL REVIEW: 08/18/2020 INITIAL REVIEWER: Susan Forte FINAL DISCHARGE DISPOSITION: : FINAL REVIEWER: FINAL REVIEW DATE: DCP Focus Questions & Answers DCP Screen QUESTION: ANSWER High Risk Factors: : Hosp related to CHF, COPD, DM, End Stage Ds, CVA, CA DCP Evaluation QUESTION: ANSWER Patient's ability to cope with chronic illness : d. No chronic illness Would patient like to participate in any Care Coordination programs (if applicable): : Not applicable Mental health screen: : No mental health history DCP Re-evaluation QUESTION: ANSWER Would patient like to participate in any Care Coordination programs (if applicable): : Not applicable PATIENT: MARY QUINTERO ENCOUNTER: [id number] MEDICAL RECORD#: [id number] ADMISSION DATE: 08/18/2020 DISCHARGE DATE: ATTENDING MD: ANASTASIIA ASH : AGE: 64 MARITAL STATUS: M DC PLAN ID: [id number] FACILITY: [facility] PRINTED ON: 08/20/20 8:38 CT All edits/amendments must be made on the electronic document DICTATION DATE: 08/20/20837 DOT ETCHER: DM 08/20/20837 RPT#: [id number] DC DATE: STATUS: ADM IN [facility] [address] [place] [address] END OF REPORT
--- NOTE | 2020-08-20 08:50 | MORECARE ---
CASE MANAGEMENT DISCHARGE SUMMARY PATIENT: MARY QUINTERO UNIT: [id number] ADM DATE: 08/18/20 AGE: 64 : 53 SEX: F ROOM/BED: D.2218 AUTHOR: CEDRICK BOOTHE PHYSICIAN: REFERRING PHYSICIAN: ANASTASIIA FRANCIS DO DATE OF SERVICE: 08/20/20 Case Management Discharge Planning Summary DCP REVIEW SUMMARY ANTICIPATED D/C DATE: EXPECTED LOS : CASE STATUS: DCP Initiated INITIAL REVIEW: 08/18/2020 INITIAL REVIEWER: Susan Forte FINAL DISCHARGE DISPOSITION: : FINAL REVIEWER: FINAL REVIEW DATE: DCP Focus Questions & Answers DCP Screen QUESTION: ANSWER High Risk Factors: : Hosp related to CHF, COPD, DM, End Stage Ds, CVA, CA DCP Evaluation QUESTION: ANSWER Patient gives permission to discuss discharge plans with: (name, relationship and number) : DAUGHTERKyle GARDNER Patient's ability to cope with chronic illness : a. Adequate (0-3 ED visits in 6 mos., adequate financial resources, attends scheduled appts.) Physical Status: : Compromised skin integrity Physical Status: : Mobility impaired Physical Status: : Partial care dependence Family / Caregiver's ability to cope with chronic illness: : a. Adequate (ability to meet patient's medical needs, ensures patient attends medical appts.) Partial Dependence, assistance required for: : Ambulation / Mobility Partial Dependence, assistance required for: : Bathing Living Arrangements: : Home with Spouse/Significant Other Baseline cognitive status: : *Oriented to person, place, situation, time and present Medication Management: : Patient states can afford medications Pharmacy name(s): : [facility] IN [place] [address] Does Patient have transportation to get home and to follow-up medical appointments when discharged from the hospital? : Yes Comments: : DAUGHTER Would patient like to participate in any Care Coordination programs (if applicable): : Not applicable Does the patient have electricity at home? : Yes Does the patient have running water in their house? : Yes Equipment in use: : Bedside Commode Equipment in use: : Home Oxygen with Nasal Cannula Equipment in use: : Wheelchair Other Equipment comments: : ORDERED IRVING LIFT FROM [employer] Mental health screen: : No mental health history Abuse/Neglect: : None Resources / Services in place: : Dialysis - facility hemodialysis [facility] Resources / Services in place: : Home health Contact information for resources in use: : MAE ROSENBERG [facility] IN [facility] Re-evaluation QUESTION: ANSWER Would patient like to participate in any Care Coordination programs (if applicable): : Not applicable PATIENT: MARY QUINTERO ENCOUNTER: [id number] MEDICAL RECORD#: [id number] ADMISSION DATE: 08/18/2020 DISCHARGE DATE: ATTENDING MD: ANASTASIIA ASH : AGE: 64 MARITAL STATUS: M DC PLAN ID: [id number] FACILITY: [facility] PRINTED ON: 08/20/20 8:50 CT All edits/amendments must be made on the electronic document DICTATION DATE: 08/20/20849 FIBER HEEL PIECE SHAPER: LEI 08/20/20849 RPT#: [id number] DC DATE: STATUS: ADM IN [facility] [address] [place] [address] END OF REPORT
--- NOTE | 2020-08-20 09:11 | MORECARE ---
CASE MANAGEMENT DISCHARGE SUMMARY PATIENT: MARY QUINTERO UNIT: [id number] ADM DATE: 08/18/20 AGE: 64 : 53 SEX: F ROOM/BED: D.2218 AUTHOR: CEDRICK BOOTHE PHYSICIAN: REFERRING PHYSICIAN: ANASTASIIA FRANCIS DO DATE OF SERVICE: 08/20/20 Case Management Discharge Planning Summary DCP REVIEW SUMMARY ANTICIPATED D/C DATE: EXPECTED LOS : CASE STATUS: DCP Initiated INITIAL REVIEW: 08/18/2020 INITIAL REVIEWER: Susan Forte FINAL DISCHARGE DISPOSITION: : FINAL REVIEWER: FINAL REVIEW DATE: DCP Focus Questions & Answers DCP Screen QUESTION: ANSWER High Risk Factors: : Hosp related to CHF, COPD, DM, End Stage Ds, CVA, CA DCP Evaluation QUESTION: ANSWER Patient's current cognitive status: : *Oriented to person, place, situation, time and present Family / Caregiver's ability to cope with chronic illness: : b. Minimal (occasionally not dependable to meet pt's. needs, can meet pt's. basic ADL's) Patient gives permission to discuss discharge plans with: (name, relationship and number) : ADINA GARDNER Patient's ability to cope with chronic illness : a. Adequate (0-3 ED visits in 6 mos., adequate financial resources, attends scheduled appts.) Functional screen assessment: : Unable to manage ADLs without immediate ongoing assistance Functional screen assessment: : New onset in difficulty in gait, balance, or transfer difficulties Physical Status: : Compromised skin integrity Physical Status: : Mobility impaired Physical Status: : Partial care dependence Family / Caregiver's ability to cope with chronic illness: : a. Adequate (ability to meet patient's medical needs, ensures patient attends medical appts.) Functional screen comments: : NEEDS INTENSE REHAB Is there a likelihood that the patient will require additional services to return to the preadmission environment? : Yes Partial Dependence, assistance required for: : Ambulation / Mobility Partial Dependence, assistance required for: : Bathing Living Arrangements: : Home with Spouse/Significant Other Patient with capacity for self-care or can be cared for in same environment as prior to hospitalization? : Yes Baseline cognitive status: : *Oriented to person, place, situation, time and present Medication Management: : Patient states can afford medications Pharmacy name(s): : [facility] Does Patient have transportation to get home and to follow-up medical appointments when discharged from the hospital? : Yes Comments: : DAUGHTER Would patient like to participate in any Care Coordination programs (if applicable): : Not applicable Does the patient have electricity at home? : Yes Does the patient have running water in their house? : Yes Equipment in use: : Bedside Commode Equipment in use: : Home Oxygen with Nasal Cannula Equipment in use: : Wheelchair Other Equipment comments: : ORDERED IRVING LIFT FROM [employer] Mental health screen: : No mental health history Abuse/Neglect: : None Resources / Services in place: : Dialysis - facility hemodialysis - Resources / Services in place: : Home health Contact information for resources in use: : MAE ROSENBERG -- [facility] IN [facility] Re-evaluation QUESTION: ANSWER Would patient like to participate in any Care Coordination programs (if applicable): : Not applicable PATIENT: MARY QUINTERO ENCOUNTER: [id number] MEDICAL RECORD#: [id number] ADMISSION DATE: 08/18/2020 DISCHARGE DATE: ATTENDING MD: ANASTASIIA ASH : AGE: 64 MARITAL STATUS: M DC PLAN ID: [id number] FACILITY: [facility] PRINTED ON: 08/20/20 9:11 CT All edits/amendments must be made on the electronic document DICTATION DATE: 08/20/20910 [employer]BAC[employer] HEALTH EDUCATOR: LEI 08/20/20910 RPT#: [id number] DC DATE: STATUS: ADM IN [facility] [address] [place] [address] END OF REPORT
--- NOTE | 2020-08-20 09:22 | MORECARE ---
CASE MANAGEMENT DISCHARGE SUMMARY PATIENT: MARY QUINTERO UNIT: [id number] ADM DATE: 08/18/20 AGE: 64 : 53 SEX: F ROOM/BED: D.9428 AUTHOR: SHYANN,CEDRICK PHYSICIAN: REFERRING PHYSICIAN: ANASTASIIA FRANCIS DO DATE OF SERVICE: 08/20/20 Case Management Discharge Planning Summary COMMENTS ENTERED DATE: 08/20/20 9:06 CT COMMENT TYPE: Discharge Planning REVIEWER: Susan Forte CM met with patient & daughter to complete initial dc planning assessment. CM educated patient on the CM role and verbal consent given by patient to complete assessment. Patient lives at home with her spouse where she is partially dependent with her care. Her daughter stated that she was at [facility] and did not get what she needed. She would like her to go to inpatient rehab either here or at [facility]. She stated that she is current with [facility] in [place]. She has a wheelchair & a BSC at home. She also has home O2 with [employer]. They have also ordered a irving lift from [employer], but has not picked it up yet. She has dialysis on _W_ at [facility]. AYSHA signed and referral sent to [facility]. Patient denied known discharge needs at this time. CM will continue to follow and will assist as needed with dc plans/needs. DCP REVIEW SUMMARY ANTICIPATED D/C DATE: EXPECTED LOS : CASE STATUS: DCP Initiated INITIAL REVIEW: 08/18/2020 INITIAL REVIEWER: Susan Forte FINAL DISCHARGE DISPOSITION: : FINAL REVIEWER: FINAL REVIEW DATE: DCP Focus Questions & Answers DCP Screen QUESTION: ANSWER High Risk Factors: : Hosp related to CHF, COPD, DM, End Stage Ds, CVA, CA DCP Evaluation QUESTION: ANSWER Patient's current cognitive status: : *Oriented to person, place, situation, time and present Family / Caregiver's ability to cope with chronic illness: : b. Minimal (occasionally not dependable to meet pt's. needs, can meet pt's. basic ADL's) Patient gives permission to discuss discharge plans with: (name, relationship and number) : DAUGHTER- JJ Patient's ability to cope with chronic illness : a. Adequate (0-3 ED visits in 6 mos., adequate financial resources, attends scheduled appts.) Functional screen assessment: : Unable to manage ADLs without immediate ongoing assistance Functional screen assessment: : New onset in difficulty in gait, balance, or transfer difficulties Physical Status: : Compromised skin integrity Physical Status: : Mobility impaired Physical Status: : Partial care dependence Family / Caregiver's ability to cope with chronic illness: : a. Adequate (ability to meet patient's medical needs, ensures patient attends medical appts.) Functional screen comments: : NEEDS INTENSE REHAB Is there a likelihood that the patient will require additional services to return to the preadmission environment? : Yes Partial Dependence, assistance required for: : Ambulation / Mobility Partial Dependence, assistance required for: : Bathing Living Arrangements: : Home with Spouse/Significant Other Patient with capacity for self-care or can be cared for in same environment as prior to hospitalization? : Yes Baseline cognitive status: : *Oriented to person, place, situation, time and present Medication Management: : Patient states can afford medications Pharmacy name(s): : [facility] [place] [address] Does Patient have transportation to get home and to follow-up medical appointments when discharged from the hospital? : Yes Comments: : DAUGHTER Would patient like to participate in any Care Coordination programs (if applicable): : Not applicable Does the patient have electricity at home? : Yes Does the patient have running water in their house? : Yes Equipment in use: : Bedside Commode Equipment in use: : Home Oxygen with Nasal Cannula Equipment in use: : Wheelchair Other Equipment comments: : ORDERED IRVING LIFT FROM [employer] Mental health screen: : No mental health history Abuse/Neglect: : None Resources / Services in place: : Dialysis - facility hemodialysis Resources / Services in place: : Home health Contact information for resources in use: : MAE ROSENBERG -- [employer] [facility] Re-evaluation QUESTION: ANSWER Would patient like to participate in any Care Coordination programs (if applicable): : Not applicable PATIENT: MARY QUINTERO ENCOUNTER: [id number] MEDICAL RECORD#: [id number] ADMISSION DATE: 08/18/2020 DISCHARGE DATE: ATTENDING MD: ANASTASIIA ASH : AGE: 64 MARITAL STATUS: M DC PLAN ID: [id number] FACILITY: [facility] PRINTED ON: 08/20/20 9:21 CT All edits/amendments must be made on the electronic document DICTATION DATE: 08/20/20920 SALES REPRESENTATIVE SALES MANAGER: LEI 08/20/20920 RPT#: [id number] DC DATE: STATUS: ADM IN [facility] [address] [place] [address] END OF REPORT
[2020-08-20 09:24] VITALS: BP 141/85
[2020-08-20 11:52] VITALS: BP 140/80
[2020-08-20] MEDS ORDERED: HYDROCODON-ACE1 EAC7 PO (14:18)
--- NOTE | 2020-08-20 15:34 | MORECARE ---
CASE MANAGEMENT DISCHARGE SUMMARY PATIENT: MARY QUINTERO UNIT: [id number] ADM DATE: 08/18/20 AGE: 64 : 53 SEX: F ROOM/BED: D.2488 AUTHOR: SHYANN,CEDRICK PHYSICIAN: REFERRING PHYSICIAN: ANASTASIIA FRANCIS DO DATE OF SERVICE: 08/20/20 Case Management Discharge Planning Summary COMMENTS ENTERED DATE: 08/20/20 9:06 CT COMMENT TYPE: Discharge Planning REVIEWER: Susan Forte CM met with patient & daughter to complete initial dc planning assessment. CM educated patient on the CM role and verbal consent given by patient to complete assessment. Patient lives at home with her spouse where she is partially dependent with her care. Her daughter stated that she was at [facility] and did not get what she needed. She would like her to go to inpatient rehab either here or at [facility]. She stated that she is current with [facility] in [place]. She has a wheelchair & a BSC at home. She also has home O2 with [employer]. They have also ordered a irving lift from [employer], but has not picked it up yet. She has dialysis on _W_ at [facility]. AYSHA signed and referral sent to [facility]. Patient denied known discharge needs at this time. CM will continue to follow and will assist as needed with dc plans/needs. DCP REVIEW SUMMARY ANTICIPATED D/C DATE: EXPECTED LOS : CASE STATUS: DCP Initiated INITIAL REVIEW: 08/18/2020 INITIAL REVIEWER: Susan Forte FINAL DISCHARGE DISPOSITION: : FINAL REVIEWER: FINAL REVIEW DATE: DCP Focus Questions & Answers DCP Screen QUESTION: ANSWER High Risk Factors: : Hosp related to CHF, COPD, DM, End Stage Ds, CVA, CA DCP Evaluation QUESTION: ANSWER Patient's current cognitive status: : *Oriented to person, place, situation, time and present Family / Caregiver's ability to cope with chronic illness: : b. Minimal (occasionally not dependable to meet pt's. needs, can meet pt's. basic ADL's) Patient gives permission to discuss discharge plans with: (name, relationship and number) : DAUGHTER- JJ Patient's ability to cope with chronic illness : a. Adequate (0-3 ED visits in 6 mos., adequate financial resources, attends scheduled appts.) Functional screen assessment: : Unable to manage ADLs without immediate ongoing assistance Functional screen assessment: : New onset in difficulty in gait, balance, or transfer difficulties Physical Status: : Compromised skin integrity Physical Status: : Mobility impaired Physical Status: : Partial care dependence Family / Caregiver's ability to cope with chronic illness: : a. Adequate (ability to meet patient's medical needs, ensures patient attends medical appts.) Functional screen comments: : NEEDS INTENSE REHAB Is there a likelihood that the patient will require additional services to return to the preadmission environment? : Yes Partial Dependence, assistance required for: : Ambulation / Mobility Partial Dependence, assistance required for: : Bathing Living Arrangements: : Home with Spouse/Significant Other Patient with capacity for self-care or can be cared for in same environment as prior to hospitalization? : Yes Baseline cognitive status: : *Oriented to person, place, situation, time and present Medication Management: : Patient states can afford medications Pharmacy name(s): : [facility] [place] [address] Does Patient have transportation to get home and to follow-up medical appointments when discharged from the hospital? : Yes Comments: : DAUGHTER Would patient like to participate in any Care Coordination programs (if applicable): : Not applicable Does the patient have electricity at home? : Yes Does the patient have running water in their house? : Yes Equipment in use: : Bedside Commode Equipment in use: : Home Oxygen with Nasal Cannula Equipment in use: : Wheelchair Other Equipment comments: : ORDERED IRVING LIFT FROM [employer] Mental health screen: : No mental health history Abuse/Neglect: : None Resources / Services in place: : Dialysis - facility hemodialysis Resources / Services in place: : Home health Contact information for resources in use: : MAE ROSENBERG -- [email or web address] [facility] Re-evaluation QUESTION: ANSWER Would patient like to participate in any Care Coordination programs (if applicable): : Not applicable PATIENT: MARY QUINTERO ENCOUNTER: [id number] MEDICAL RECORD#: [id number] ADMISSION DATE: 08/18/2020 DISCHARGE DATE: ATTENDING MD: ANASTASIIA ASH : AGE: 64 MARITAL STATUS: M DC PLAN ID: [id number] FACILITY: [facility] PRINTED ON: 08/20/20 15:34 CT All edits/amendments must be made on the electronic document DICTATION DATE: 08/20/201533 MATERIAL CHECKER: LEI 08/20/201533 RPT#: [id number] DC DATE: STATUS: ADM IN [facility] [address] [place] [address] END OF REPORT
--- NOTE | 2020-08-20 15:50 | MORECARE ---
CASE MANAGEMENT DISCHARGE SUMMARY PATIENT: MARY QUINTERO UNIT: [id number] ADM DATE: 08/18/20 AGE: 64 : 53 SEX: F ROOM/BED: D.1888 AUTHOR: SHYANN,CEDRICK PHYSICIAN: REFERRING PHYSICIAN: ANASTASIIA FRANCIS DO DATE OF SERVICE: 08/20/20 Case Management Discharge Planning Summary COMMENTS ENTERED DATE: 08/20/20 15:37 CT COMMENT TYPE: Discharge Planning REVIEWER: Susan Forte PATIENT HAS BEEN ACCEPTED TO INPATIENT REHAB AT [facility], SAHIL WITH [facility] HAS SPOKEN WITH THE PATIENT AND HER DAUGHTER THEY WILL ARRANGE TRANSPORTATION CM TO FOLLOW NEEDED ENTERED DATE: 08/20/20 9:06 CT COMMENT TYPE: Discharge Planning REVIEWER: Susan Forte CM met with patient & daughter to complete initial dc planning assessment. CM educated patient on the CM role and verbal consent given by patient to complete assessment. Patient lives at home with her spouse where she is partially dependent with her care. Her daughter stated that she was at [facility] and did not get what she needed. She would like her to go to inpatient rehab either here or at [facility]. She stated that she is current with [facility] in [place]. She has a wheelchair & a BSC at home. She also has home O2 with [employer]. They have also ordered a irving lift from [employer], but has not picked it up yet. She has dialysis on _W_F at [facility]. AYSHA signed and referral sent to [facility]. Patient denied known discharge needs at this time. CM will continue to follow and will assist as needed with dc plans/needs. DCP REVIEW SUMMARY ANTICIPATED D/C DATE: EXPECTED LOS : CASE STATUS: DCP Initiated INITIAL REVIEW: 08/18/2020 INITIAL REVIEWER: Susan Forte FINAL DISCHARGE DISPOSITION: 60 : Discharged/Trans to IP Rehab Facility Including Distinct Units of a Hospital FINAL REVIEWER: FINAL REVIEW DATE: DCP Focus Questions & Answers DCP Screen QUESTION: ANSWER High Risk Factors: : Hosp related to CHF, COPD, DM, End Stage Ds, CVA, CA DCP Evaluation QUESTION: ANSWER Patient's current cognitive status: : *Oriented to person, place, situation, time and present Family / Caregiver's ability to cope with chronic illness: : b. Minimal (occasionally not dependable to meet pt's. needs, can meet pt's. basic ADL's) Patient gives permission to discuss discharge plans with: (name, relationship and number) : DAUGHTERKyle GARDNER Patient's ability to cope with chronic illness : a. Adequate (0-3 ED visits in 6 mos., adequate financial resources, attends scheduled appts.) Functional screen assessment: : Unable to manage ADLs without immediate ongoing assistance Functional screen assessment: : New onset in difficulty in gait, balance, or transfer difficulties Physical Status: : Compromised skin integrity Physical Status: : Mobility impaired Physical Status: : Partial care dependence Family / Caregiver's ability to cope with chronic illness: : a. Adequate (ability to meet patient's medical needs, ensures patient attends medical appts.) Functional screen comments: : NEEDS INTENSE REHAB Is there a likelihood that the patient will require additional services to return to the preadmission environment? : Yes Partial Dependence, assistance required for: : Ambulation / Mobility Partial Dependence, assistance required for: : Bathing Living Arrangements: : Home with Spouse/Significant Other Patient with capacity for self-care or can be cared for in same environment as prior to hospitalization? : Yes Baseline cognitive status: : *Oriented to person, place, situation, time and present Medication Management: : Patient states can afford medications Pharmacy name(s): : [facility] [address] Does Patient have transportation to get home and to follow-up medical appointments when discharged from the hospital? : Yes Comments: : DAUGHTER Would patient like to participate in any Care Coordination programs (if applicable): : Not applicable Does the patient have electricity at home? : Yes Does the patient have running water in their house? : Yes Equipment in use: : Bedside Commode Equipment in use: : Home Oxygen with Nasal Cannula Equipment in use: : Wheelchair Other Equipment comments: : ORDERED IRVING LIFT FROM [employer] Mental health screen: : No mental health history Abuse/Neglect: : None Resources / Services in place: : Dialysis - facility hemodialysis Resources / Services in place: : Home health Contact information for resources in use: : [facility]E Jain [facility] IN [facility] Re-evaluation QUESTION: ANSWER Would patient like to participate in any Care Coordination programs (if applicable): : Not applicable PATIENT: MARY QUINTERO ENCOUNTER: [id number] MEDICAL RECORD#: [id number] ADMISSION DATE: 08/18/2020 DISCHARGE DATE: ATTENDING MD: ANASTASIIA ASH : AGE: 64 MARITAL STATUS: M DC PLAN ID: [id number] FACILITY: [facility] PRINTED ON: 08/20/20 15:49 CT All edits/amendments must be made on the electronic document DICTATION DATE: 08/20/20 154 PILOT INSTRUCTOR: LEI 08/20/20 1549 RPT#: [id number] DC DATE: STATUS: ADM IN [facility] [address] [place] [address] END OF REPORT
--- NOTE | 2020-08-20 16:06 | MORECARE ---
CASE MANAGEMENT DISCHARGE SUMMARY PATIENT: MARY QUINTERO UNIT: [id number] ADM DATE: 08/18/20 AGE: 64 : 53 SEX: F ROOM/BED: D.6028 AUTHOR: SHYANN,CEDRICK PHYSICIAN: REFERRING PHYSICIAN: ANASTASIIA FRANCIS DO DATE OF SERVICE: 08/20/20 Case Management Discharge Planning Summary COMMENTS ENTERED DATE: 08/20/20 15:37 CT COMMENT TYPE: Discharge Planning REVIEWER: Susan Forte PATIENT HAS BEEN ACCEPTED TO INPATIENT REHAB AT [facility], SAHIL WITH [facility] HAS SPOKEN WITH THE PATIENT AND HER DAUGHTER THEY WILL ARRANGE TRANSPORTATION CM TO FOLLOW NEEDED ENTERED DATE: 08/20/20 9:06 CT COMMENT TYPE: Discharge Planning REVIEWER: Susan Forte CM met with patient & daughter to complete initial dc planning assessment. CM educated patient on the CM role and verbal consent given by patient to complete assessment. Patient lives at home with her spouse where she is partially dependent with her care. Her daughter stated that she was at [facility] and did not get what she needed. She would like her to go to inpatient rehab either here or at [facility]. She stated that she is current with [facility] in [place]. She has a wheelchair & a BSC at home. She also has home O2 with [employer]. They have also ordered a irving lift from [employer], but has not picked it up yet. She has dialysis on _W_F at [facility]. AYSHA signed and referral sent to [facility]. Patient denied known discharge needs at this time. CM will continue to follow and will assist as needed with dc plans/needs. DCP REVIEW SUMMARY ANTICIPATED D/C DATE: EXPECTED LOS : CASE STATUS: DCP Initiated INITIAL REVIEW: 08/18/2020 INITIAL REVIEWER: Susan Forte FINAL DISCHARGE DISPOSITION: 60 : Discharged/Trans to IP Rehab Facility Including Distinct Units of a Hospital FINAL REVIEWER: FINAL REVIEW DATE: DCP Focus Questions & Answers DCP Screen QUESTION: ANSWER High Risk Factors: : Hosp related to CHF, COPD, DM, End Stage Ds, CVA, CA DCP Evaluation QUESTION: ANSWER Patient's current cognitive status: : *Oriented to person, place, situation, time and present Family / Caregiver's ability to cope with chronic illness: : b. Minimal (occasionally not dependable to meet pt's. needs, can meet pt's. basic ADL's) Patient gives permission to discuss discharge plans with: (name, relationship and number) : DAUGHTERKyle GARDNER Patient's ability to cope with chronic illness : a. Adequate (0-3 ED visits in 6 mos., adequate financial resources, attends scheduled appts.) Functional screen assessment: : Unable to manage ADLs without immediate ongoing assistance Functional screen assessment: : New onset in difficulty in gait, balance, or transfer difficulties Physical Status: : Compromised skin integrity Physical Status: : Mobility impaired Physical Status: : Partial care dependence Family / Caregiver's ability to cope with chronic illness: : a. Adequate (ability to meet patient's medical needs, ensures patient attends medical appts.) Functional screen comments: : NEEDS INTENSE REHAB Is there a likelihood that the patient will require additional services to return to the preadmission environment? : Yes Partial Dependence, assistance required for: : Ambulation / Mobility Partial Dependence, assistance required for: : Bathing Living Arrangements: : Home with Spouse/Significant Other Patient with capacity for self-care or can be cared for in same environment as prior to hospitalization? : Yes Baseline cognitive status: : *Oriented to person, place, situation, time and present Medication Management: : Patient states can afford medications Pharmacy name(s): : [facility] [address] [facility] Does Patient have transportation to get home and to follow-up medical appointments when discharged from the hospital? : Yes Comments: : DAUGHTER Would patient like to participate in any Care Coordination programs (if applicable): : Not applicable Does the patient have electricity at home? : Yes Does the patient have running water in their house? : Yes Equipment in use: : Bedside Commode Equipment in use: : Home Oxygen with Nasal Cannula Equipment in use: : Wheelchair Other Equipment comments: : ORDERED IRVING LIFT FROM [employer] Mental health screen: : No mental health history Abuse/Neglect: : None Resources / Services in place: : Dialysis - facility hemodialysis Resources / Services in place: : Home health Contact information for resources in use: : [facility]E [facility]ain [facility] IN [facility] Re-evaluation QUESTION: ANSWER Would patient like to participate in any Care Coordination programs (if applicable): : Not applicable PATIENT: MARY QUINTERO ENCOUNTER: [id number] MEDICAL RECORD#: [id number] ADMISSION DATE: 08/18/2020 DISCHARGE DATE: ATTENDING MD: ANASTASIIA ASH : AGE: 64 MARITAL STATUS: M DC PLAN ID: [id number] FACILITY: [facility] PRINTED ON: 08/20/20 16:06 CT All edits/amendments must be made on the electronic document DICTATION DATE: 08/20/20 160 DEAN OF GRADUATE STUDIES: LEI 08/20/20 1605 RPT#: [id number] DC DATE: STATUS: ADM IN [facility] [address] [place] [address] END OF REPORT
[2020-08-20 16:18] VITALS: BP 143/56
--- NOTE | 2020-08-20 18:09 | NUR ---
[facility], PREVENA WOUND VAC IN PLACE. STABLE CONDITION UPON DEPARTURE WITH ALL PERSONAL BELONGING.
--- NOTE | 2020-08-20 18:17 | MORECARE ---
CASE MANAGEMENT DISCHARGE SUMMARY PATIENT: MARY QUINTERO UNIT: [id number] ADM DATE: 08/18/20 AGE: 64 : 53 SEX: F ROOM/BED: D.6638 AUTHOR: SHYANN,CEDRICK PHYSICIAN: REFERRING PHYSICIAN: ANASTASIIA FRANCIS DO DATE OF SERVICE: 08/20/20 Case Management Discharge Planning Summary COMMENTS ENTERED DATE: 08/20/20 15:37 CT COMMENT TYPE: Discharge Planning REVIEWER: Susan Forte PATIENT HAS BEEN ACCEPTED TO INPATIENT REHAB AT [facility], SAHIL WITH [facility] HAS SPOKEN WITH THE PATIENT AND HER DAUGHTER THEY WILL ARRANGE TRANSPORTATION CM TO FOLLOW NEEDED ENTERED DATE: 08/20/20 9:06 CT COMMENT TYPE: Discharge Planning REVIEWER: Susan Forte CM met with patient & daughter to complete initial dc planning assessment. CM educated patient on the CM role and verbal consent given by patient to complete assessment. Patient lives at home with her spouse where she is partially dependent with her care. Her daughter stated that she was at [facility] and did not get what she needed. She would like her to go to inpatient rehab either here or at [facility]. She stated that she is current with [facility] in [place]. She has a wheelchair & a BSC at home. She also has home O2 with [employer]. They have also ordered a irving lift from [employer], but has not picked it up yet. She has dialysis on _W_F at [facility]. AYSHA signed and referral sent to [facility]. Patient denied known discharge needs at this time. CM will continue to follow and will assist as needed with dc plans/needs. DCP REVIEW SUMMARY ANTICIPATED D/C DATE: EXPECTED LOS : CASE STATUS: DCP Initiated INITIAL REVIEW: 08/18/2020 INITIAL REVIEWER: Susan Forte FINAL DISCHARGE DISPOSITION: 62 : Discharged/Trans to IP Rehab Facility Including Distinct Units of a Hospital FINAL REVIEWER: FINAL REVIEW DATE: DCP Focus Questions & Answers DCP Screen QUESTION: ANSWER High Risk Factors: : Hosp related to CHF, COPD, DM, End Stage Ds, CVA, CA DCP Evaluation QUESTION: ANSWER Patient's current cognitive status: : *Oriented to person, place, situation, time and present Family / Caregiver's ability to cope with chronic illness: : b. Minimal (occasionally not dependable to meet pt's. needs, can meet pt's. basic ADL's) Patient gives permission to discuss discharge plans with: (name, relationship and number) : DAUGHTERKyle GARDNER Patient's ability to cope with chronic illness : a. Adequate (0-3 ED visits in 6 mos., adequate financial resources, attends scheduled appts.) Functional screen assessment: : Unable to manage ADLs without immediate ongoing assistance Functional screen assessment: : New onset in difficulty in gait, balance, or transfer difficulties Physical Status: : Compromised skin integrity Physical Status: : Mobility impaired Physical Status: : Partial care dependence Family / Caregiver's ability to cope with chronic illness: : a. Adequate (ability to meet patient's medical needs, ensures patient attends medical appts.) Functional screen comments: : NEEDS INTENSE REHAB Is there a likelihood that the patient will require additional services to return to the preadmission environment? : Yes Partial Dependence, assistance required for: : Ambulation / Mobility Partial Dependence, assistance required for: : Bathing Living Arrangements: : Home with Spouse/Significant Other Patient with capacity for self-care or can be cared for in same environment as prior to hospitalization? : Yes Baseline cognitive status: : *Oriented to person, place, situation, time and present Medication Management: : Patient states can afford medications Pharmacy name(s): : [facility] [address] [facility] Does Patient have transportation to get home and to follow-up medical appointments when discharged from the hospital? : Yes Comments: : DAUGHTER Would patient like to participate in any Care Coordination programs (if applicable): : Not applicable Does the patient have electricity at home? : Yes Does the patient have running water in their house? : Yes Equipment in use: : Bedside Commode Equipment in use: : Home Oxygen with Nasal Cannula Equipment in use: : Wheelchair Other Equipment comments: : ORDERED IRVING LIFT FROM [employer] Mental health screen: : No mental health history Abuse/Neglect: : None Resources / Services in place: : Dialysis - facility hemodialysis Resources / Services in place: : Home health Contact information for resources in use: : [facility] Re-evaluation QUESTION: ANSWER Would patient like to participate in any Care Coordination programs (if applicable): : Not applicable PATIENT: MARY QUINTERO ENCOUNTER: [id number] MEDICAL RECORD#: [id number] ADMISSION DATE: 08/18/2020 DISCHARGE DATE: 08/20/2020 ATTENDING MD: ANASTASIIA ASH : AGE: 64 MARITAL STATUS: M DC PLAN ID: [id number] FACILITY: [facility] PRINTED ON: 08/20/20 18:17 CT All edits/amendments must be made on the electronic document DICTATION DATE: 08/20/201816 BANK CONSULTANT: LEI 08/20/201816 RPT#: [id number] DC DATE:08/20/20 STATUS: DIS IN [facility] [address] [place] [address] END OF REPORT
--- NOTE | 2020-08-21 07:32 | MORECARE ---
CASE MANAGEMENT DISCHARGE SUMMARY PATIENT: MARY QUINTERO UNIT: [id number] ADM DATE: 08/18/20 AGE: 64 : 53 SEX: F ROOM/BED: D.2638 AUTHOR: SHYANN,DOC PHYSICIAN: REFERRING PHYSICIAN: ANASTASIIA FRANCIS DO DATE OF SERVICE: 08/21/20 Case Management Discharge Planning Summary COMMENTS ENTERED DATE: 08/20/20 15:37 CT COMMENT TYPE: Discharge Planning REVIEWER: Susan Forte PATIENT HAS BEEN ACCEPTED TO INPATIENT REHAB AT [facility], SAHIL WITH [facility] HAS SPOKEN WITH THE PATIENT AND HER DAUGHTER THEY WILL ARRANGE TRANSPORTATION CM TO FOLLOW NEEDED ENTERED DATE: 08/20/20 9:06 CT COMMENT TYPE: Discharge Planning REVIEWER: Susan Forte CM met with patient & daughter to complete initial dc planning assessment. CM educated patient on the CM role and verbal consent given by patient to complete assessment. Patient lives at home with her spouse where she is partially dependent with her care. Her daughter stated that she was at [facility] and did not get what she needed. She would like her to go to inpatient rehab either here or at [facility]. She stated that she is current with [facility] in [place]. She has a wheelchair & a BSC at home. She also has home O2 with [employer]. They have also ordered a irving lift from [employer], but has not picked it up yet. She has dialysis on M_W_F at [facility]. AYSHA signed and referral sent to [facility]. Patient denied known discharge needs at this time. CM will continue to follow and will assist as needed with dc plans/needs. DCP REVIEW SUMMARY ANTICIPATED D/C DATE: EXPECTED LOS : 0 CASE STATUS: DCP Complete INITIAL REVIEW: 08/18/2020 INITIAL REVIEWER: Susan Forte FINAL DISCHARGE DISPOSITION: 62 : Discharged/Trans to IP Rehab Facility Including Distinct Units of a Hospital FINAL REVIEWER: Susan Forte FINAL REVIEW DATE: 08/21/2020 DCP Focus Questions & Answers DCP Screen QUESTION: ANSWER High Risk Factors: : Hosp related to CHF, COPD, DM, End Stage Ds, CVA, CA DCP Evaluation QUESTION: ANSWER Patient's ability to cope with chronic illness : a. Adequate (0-3 ED visits in 6 mos., adequate financial resources, attends scheduled appts.) Patient gives permission to discuss discharge plans with: (name, relationship and number) : ADINA GARDNER Family / Caregiver's ability to cope with chronic illness: : b. Minimal (occasionally not dependable to meet pt's. needs, can meet pt's. basic ADL's) Patient's current cognitive status: : *Oriented to person, place, situation, time and present Family / Caregiver's ability to cope with chronic illness: : a. Adequate (ability to meet patient's medical needs, ensures patient attends medical appts.) Physical Status: : Partial care dependence Physical Status: : Mobility impaired Physical Status: : Compromised skin integrity Functional screen assessment: : New onset in difficulty in gait, balance, or transfer difficulties Functional screen assessment: : Unable to manage ADLs without immediate ongoing assistance Living Arrangements: : Home with Spouse/Significant Other Partial Dependence, assistance required for: : Bathing Partial Dependence, assistance required for: : Ambulation / Mobility Is there a likelihood that the patient will require additional services to return to the preadmission environment? : Yes Functional screen comments: : NEEDS INTENSE REHAB Baseline cognitive status: : *Oriented to person, place, situation, time and present Patient with capacity for self-care or can be cared for in same environment as prior to hospitalization? : Yes Medication Management: : Patient states can afford medications Pharmacy name(s): : [facility] [address] [facility] Does Patient have transportation to get home and to follow-up medical appointments when discharged from the hospital? : Yes Would patient like to participate in any Care Coordination programs (if applicable): : Not applicable Comments: : DAUGHTER Does the patient have electricity at home? : Yes Does the patient have running water in their house? : Yes Equipment in use: : Wheelchair Equipment in use: : Home Oxygen with Nasal Cannula Equipment in use: : Bedside Commode Other Equipment comments: : ORDERED IRVING LIFT FROM [employer] Mental health screen: : No mental health history Abuse/Neglect: : None Resources / Services in place: : Home health Resources / Services in place: : Dialysis - facility hemodialysis Contact information for resources in use: : [facility] M-W-F [facility] Re-evaluation QUESTION: ANSWER Would patient like to participate in any Care Coordination programs (if applicable): : Not applicable PATIENT: MARY QUINTERO ENCOUNTER: [id number] MEDICAL RECORD#: [id number] ADMISSION DATE: 08/18/2020 DISCHARGE DATE: 08/20/2020 ATTENDING MD: ANASTASIIA ASH : AGE: 64 MARITAL STATUS: M DC PLAN ID: [id number] FACILITY: [facility] PRINTED ON: 08/21/20 7:32 CT All edits/amendments must be made on the electronic document DICTATION DATE: 08/21/20731 YARN PREPARATION SUPERVISOR: LEI 08/21/20731 RPT#: [id number] DC DATE:08/20/20 STATUS: DIS IN [facility] [address] [place] [address] END OF REPORT
[2020-08-21] MEDS ORDERED: PIPERACIL-TAZ2.25 G1 IV (10:14)
--- NOTE | 2020-08-21 16:05 | MORECARE ---
CASE MANAGEMENT DISCHARGE SUMMARY PATIENT: MARY QUINTERO UNIT: [id number] ADM DATE: 08/18/20 AGE: 64 : 53 SEX: F ROOM/BED: D.8778 AUTHOR: SHYANN,DOC PHYSICIAN: REFERRING PHYSICIAN: ANASTASIIA FRANCIS DO DATE OF SERVICE: 08/21/20 Case Management Discharge Planning Summary COMMENTS ENTERED DATE: 08/20/20 15:37 CT COMMENT TYPE: Discharge Planning REVIEWER: Susan Forte PATIENT HAS BEEN ACCEPTED TO INPATIENT REHAB AT [facility], SAHIL WITH [facility] HAS SPOKEN WITH THE PATIENT AND HER DAUGHTER THEY WILL ARRANGE TRANSPORTATION CM TO FOLLOW NEEDED ENTERED DATE: 08/20/20 9:06 CT COMMENT TYPE: Discharge Planning REVIEWER: Susan Forte CM met with patient & daughter to complete initial dc planning assessment. CM educated patient on the CM role and verbal consent given by patient to complete assessment. Patient lives at home with her spouse where she is partially dependent with her care. Her daughter stated that she was at [facility] and did not get what she needed. She would like her to go to inpatient rehab either here or at [facility]. She stated that she is current with [facility] in [place]. She has a wheelchair & a BSC at home. She also has home O2 with [employer]. They have also ordered a irving lift from [employer], but has not picked it up yet. She has dialysis on M_W_F at [facility]. AYSHA signed and referral sent to [facility]. Patient denied known discharge needs at this time. CM will continue to follow and will assist as needed with dc plans/needs. DCP REVIEW SUMMARY ANTICIPATED D/C DATE: EXPECTED LOS : 0 CASE STATUS: DCP Complete INITIAL REVIEW: 08/18/2020 INITIAL REVIEWER: Susan Forte FINAL DISCHARGE DISPOSITION: 62 : Discharged/Trans to IP Rehab Facility Including Distinct Units of a Hospital FINAL REVIEWER: Susan Forte FINAL REVIEW DATE: 08/21/2020 DCP Focus Questions & Answers DCP Screen QUESTION: ANSWER High Risk Factors: : Hosp related to CHF, COPD, DM, End Stage Ds, CVA, CA DCP Evaluation QUESTION: ANSWER Patient's ability to cope with chronic illness : a. Adequate (0-3 ED visits in 6 mos., adequate financial resources, attends scheduled appts.) Patient gives permission to discuss discharge plans with: (name, relationship and number) : ADINA GARDNER Family / Caregiver's ability to cope with chronic illness: : b. Minimal (occasionally not dependable to meet pt's. needs, can meet pt's. basic ADL's) Patient's current cognitive status: : *Oriented to person, place, situation, time and present Family / Caregiver's ability to cope with chronic illness: : a. Adequate (ability to meet patient's medical needs, ensures patient attends medical appts.) Physical Status: : Partial care dependence Physical Status: : Mobility impaired Physical Status: : Compromised skin integrity Functional screen assessment: : New onset in difficulty in gait, balance, or transfer difficulties Functional screen assessment: : Unable to manage ADLs without immediate ongoing assistance Living Arrangements: : Home with Spouse/Significant Other Partial Dependence, assistance required for: : Bathing Partial Dependence, assistance required for: : Ambulation / Mobility Is there a likelihood that the patient will require additional services to return to the preadmission environment? : Yes Functional screen comments: : NEEDS INTENSE REHAB Baseline cognitive status: : *Oriented to person, place, situation, time and present Patient with capacity for self-care or can be cared for in same environment as prior to hospitalization? : Yes Medication Management: : Patient states can afford medications Pharmacy name(s): : [facility] [address] [facility] Does Patient have transportation to get home and to follow-up medical appointments when discharged from the hospital? : Yes Would patient like to participate in any Care Coordination programs (if applicable): : Not applicable Comments: : DAUGHTER Does the patient have electricity at home? : Yes Does the patient have running water in their house? : Yes Equipment in use: : Wheelchair Equipment in use: : Home Oxygen with Nasal Cannula Equipment in use: : Bedside Commode Other Equipment comments: : ORDERED IRVING LIFT FROM [employer] Mental health screen: : No mental health history Abuse/Neglect: : None Resources / Services in place: : Home health Resources / Services in place: : Dialysis - facility hemodialysis Contact information for resources in use: : [facility] M[facility]-F [facility] Re-evaluation QUESTION: ANSWER Would patient like to participate in any Care Coordination programs (if applicable): : Not applicable PATIENT: MARY QUINTERO ENCOUNTER: [id number] MEDICAL RECORD#: [id number] ADMISSION DATE: 08/18/2020 DISCHARGE DATE: 08/20/2020 ATTENDING MD: ANASTASIIA ASH : AGE: 64 MARITAL STATUS: M DC PLAN ID: [id number] FACILITY: [facility] PRINTED ON: 08/21/20 16:05 CT All edits/amendments must be made on the electronic document DICTATION DATE: 08/21/201604 WARD SECRETARY: LEI 08/21/201604 RPT#: [id number] DC DATE:08/20/20 STATUS: DIS IN [facility] [address] [place] [address] END OF REPORT
== END 2020-08-20 18:11 | DRG 463 ==
LOC: D.MS 16:40
PROVIDERS: Internal Medicine; ADMIT Orthopaedic Surgery; ATTEND Orthopaedic Surgery
PROC: 0HRLXK3 Replacement of Left Lower Leg Skin with Nonautologous Tissue Substitute, Full Thickness, External Approach (ICD-10-PCS; 2020-08-19)
PROC: 0JBP0ZZ Excision of Left Lower Leg Subcutaneous Tissue and Fascia, Open Approach (ICD-10-PCS; principal; 2020-08-19 13:00)
DX: T87.81 Dehiscence of amputation stump (principal); N18.6 End stage renal disease; I12.0 Hypertensive chronic kidney disease with stage 5 chronic kidney disease or end stage renal disease; Y83.9 Surgical procedure, unspecified as the cause of abnormal reaction of the patient, or of later complication, without mention of misadventure at the time of the procedure; E11.22 Type 2 diabetes mellitus with diabetic chronic kidney disease; Z99.2 Dependence on renal dialysis